=== PATIENT | female | born 1970 | race Caucasian/White ===

== ENCOUNTER 2020-03-10 08:18 | Outpatient (CLI) | payer OTHER, SELFPAY ==
--- NOTE | 2020-03-10 08:21 | MM_ITS ---
WS: [id number] SCREENING DIGITAL MAMMOGRAM WITH CAD HISTORY: SCREENING COMPARISON: None available. Bilateral CC and MLO views submitted. Computer aided detection analyzed. Breast composition: There are scattered areas of fibroglandular density. No suspicious masses, microc alcifications or architectural distortion. MM/[place] [id number] IMPRESSION: BI-RADS: 1-Negative FOLLOW UP: 1 Year Follow-up
== END 2020-03-10 08:19 | disposition home or self-care (01) ==
LOC: RADSHAW 08:19
PROVIDERS: PCP Nurse Practitioner; Visit Provider Nurse Practitioner
DX: Z12.31 Encounter for screening mammogram for malignant neoplasm of breast (principal)
CPT/HCPCS: 77067

== ENCOUNTER 2020-04-18 02:41 | Emergency (ER) | payer OTHER, SELFPAY ==
[2020-04-18 03:12] VITALS: BP 137/79; PULSE 100; RESP 18; TEMP 35.2; O2SAT 97; BMI 36.6
--- NOTE | 2020-04-18 03:28 | CTR_ITS ---
PROCEDURE INFORMATION: Exam: CT Abdomen And Pelvis With Contrast Exam date and time: 04/18/2020 4:01 AM Age: 49 years old Clinical indication: Other: Diarrhea; Abdominal pain; Generalized; Prior surgery; Surgery date: 6+ months; Surgery type: Appy; Additional info: Abd pain TECHNIQUE: Imaging protocol: Computed tomography of the abdomen and pelvis with intravenous contrast. Radiation optimization: All CT scans at this facility use at least one of these dose optimization techniques: automated exposure control; mA and/or kV adjustment per patient size (includes targeted exams where dose is matched to clinical indication); or iterative reconstruction. Contrast material: OMNI 300; Contrast volume: 95 ml; Contrast route: INTRAVENOUS (IV); COMPARISON: CT Abdomen/Pelvis Renal [id number] 03/31/2019 1:24 PM RADIATION DOSE METRICS: Total DLP (mGy-cm): 1218.27 FINDINGS: Lungs: The lung bases are clear. Mediastinal space: Very small hiatal hernia. There may be some mucosal/wall thickening involving the lower esophagus. This is nonspecific, but could represent evidence for esophagitis. Please correlate clinically. Liver: There is fatty infiltration of the liver. Gallbladder and bile ducts: No definite gallbladder abnormality by CT. No biliary tree dilation. Pancreas: Unremarkable. Spleen: Unremarkable. Adrenals: Unremarkable. Kidneys and ureters: No hydronephrosis of either kidney. No visible ureteral calculus. No perinephric fluid. The kidneys enhance homogeneously. Stomach and bowel: Possibility of slightly thickened mucosa/wall in the distal antrum of the stomach. This is a nonspecific appearance, and may well be transient on CT, but could also represent evidence for gastritis or peptic ulcer disease. Please correlate clinically. There are no CT findings to strongly suggest diverticulitis. Appendix: Reportedly, there has been prior appendectomy. Intraperitoneal space: No free air, ascites, or bowel distention. Vasculature: No evidence for abdominal aortic aneurysm. Lymph nodes: No retroperitoneal adenopathy. Bladder: Possibly some mild diffuse urinary bladder wall thickening. While nonspecific, this could indicate evidence for cystitis. Please correlate clinically. Reproductive: The right ovary contains a 20 x 13 mm dominant follicle versus small collapsing cyst. Significance probably unlikely due to small size. No significant cul-de-sac fluid. Possible nabothian cysts versus small fibroids in the lower uterine segment/cervix region, similar to prior exam. Bones/joints: Moderate degenerative disc changes at L5-S1, similar to prior exam. Soft tissues: Very small cyst. umbilical hernia, containing only fat. CT/CT abdomen pelvis w con* [id number] IMPRESSION: 1. No free air or bowel distention. 2. Possible thickened mucosa/wall in the distal stomach, see above discussion. 3. No free air or bowel distention. 4. Possible mild urinary bladder wall thickening, see above. 5. Very small hiatal hernia. Possibly some thickening of the lower esophagus, see above discussion. 6. Other findings discussed above. Radiation Dose CTDIVOL = (mGy): DLP = 1218.27 (mGy-cm)
[2020-04-18 03:38] LABS: Add Urine Microscopic? NO
--- NOTE | 2020-04-18 03:39 | W.ED.ABDPA2 ---
HPI - Abdominal Pain General: Chief Complaint: Abdominal Pain Stated Complaint: upper abd pain Time Seen by Provider: 04/18/20 03:20 History of Present Illness: HPI narrative: 49-year-old female with 1 week of upper abdominal pain. She states it started on the left side, and is now more in the epigastrium. She has not vomited. She has had some diarrhea. Her PCP did some labs on Sunday, but has not called her. She has a history of belly surgeries including appendectomy, 2 laparoscopic surgeries. No one else is been sick with vomiting or diarrhea. She denies fever. MD elicited complaint: abdominal pain Onset (ago): day(s) Pain Consistency: constant Location: Epigastric and LUQ Severity: moderate Quality: cramping and stabbing Radiation: none Migration to: no migration Exacerbating factors: eating Relieving factors: nothing Associated Symptoms: Reports diarrhea, loose stools and nausea; Denies coffee ground emesis, dysuria, fever(s), hematuria, hematemesis, melena and vomiting Review of Systems Const: Denies: fever(s) Eyes: Denies: change in vision ENMT: Denies: swelling of lips/tongue, epistaxis or sinus pain Card: Denies: chest pain, palpitations, irregular heart rhythm or edema Resp: Denies: dyspnea, productive cough, non-productive cough or wheezing GI: Reports: nausea and diarrhea; Denies: vomiting, hematemesis, coffee ground emesis or melena : Denies: dysuria or hematuria Musc: Reports: back pain; Denies: neck pain or joint warmth Skin/Breast: Denies: rash, pruritus or erythema Neuro: Denies: headache(s), dizziness, vertigo, confusion or seizure-like activity Psych: Denies: anxiety, visual hallucinations or auditory hallucinations PFS ED PFSH: Social History (Updated 10/10/19 @ 16:16 by MASOOD Hatch) Smoking and tobacco status: never smoked Alcohol intake: never Adopted: No Caregiver/support person: No Lives independently: No Household members: spouse Marital status: Current occupational status: employed Physical Exam Const: GENERAL APPEARANCE: well developed ORIENTATION/CONSCIOUSNESS: Yes oriented to person, Yes oriented to place and Yes oriented to time HENMT: COMMON NORMALS: normocephalic, external ears normal and Normal external nose present HEAD & SCALP: normocephalic; no scalp tenderness FACE & SINUS: normal facial exam NOSE: Normal external nose present and No nasal discharge present EXTERNAL EAR: Yes external ears normal Eye: COMMON NORMALS: Equal, round and reactive pupils present, EOMs intact bilaterally and conjunctivae normal EYELID: eyelids normal CONJUNCTIVA: Yes conjunctivae normal PUPIL: Yes Equal, round and reactive pupils present Neck/C-Spine: GENERAL: No tracheal deviation Chest: COMMONS NORMALS: normal inspection of the chest CHEST: No tenderness Resp: COMMON NORMALS: clear to auscultation bilaterally EFFORT & INSPECTION: No tachypneic, No respiratory distress, No retractions, No uses accessory muscles and No tracheal deviation AUSCULTATION: clear to auscultation bilaterally, no rhonchi, no wheezes and lung sounds not diminished Cardio: COMMON NORMALS: regular rate and regular rhythm RATE: regular rate RHYTHM: regular rhythm HEART SOUNDS: no murmurs PERIPHERAL PULSES: radial pulses present GI: INSPECTION: No abdominal distension AUSCULTATION: No Hyperactive bowel sounds present and No Hypoactive bowel sounds present PALPATION: Yes Tenderness to palpation present (GI) (Epigastric), Yes Guarding due to palpation present (GI) and No Rigid due to palpation PERCUSSION: no dullness to percussion and no tympanic to percussion : COMMON NORMALS: Yes no CVA tenderness BLADDER/KIDNEY EXAM: Yes no CVA tenderness Back/Pelvis: COMMON NORMALS: no CVA tenderness Neuro: SENSORIUM/ORIENTATION: Yes oriented to person, Yes oriented to place and Yes oriented to time Psych: COMMON NORMALS: mental status grossly normal Skin: COMMON NORMALS: no rashes or lesions noted GENERAL SKIN EXAM: no rashes or lesions noted Course Vital Signs: Vital signs: Vital Signs Temperature 95.3 F L 04/18/20 03:12 Pulse Rate 100 04/18/20 03:12 Respiratory Rate 20 H 04/18/20 04:15 Blood Pressure 137/79 04/18/20 03:12 Pulse Oximetry 97 04/18/20 04:15 MDM - Abdominal Pain MDM Narrative: Medical decision making narrative: 49-year-old female with a week of belly pain. She is tender in her epigastrium. White blood cell count is 11.7. Her potassium is 3.4. Her urinalysis is negative. CT reveals thickening of the distal stomach wall and possibly the distal esophagus. She will be treated for gastritis. Close outpatient follow-up was stressed. Lab Data: Labs: Lab Results 04/18/20 04/18/20 04/18/20 Range/Units 03:30 03:35 03:35 WBC 11.7 H (4.0-10.0) 10^3/ uL RBC 5.45 H (4.1-5.3) 10^6/u L Hgb 15.1 (11.5-15.3) g/dL Hct 45.5 (37.0-47.0) % MCV 83.5 (81-99) fL MCH 27.7 L (28.0-34.0) pg MCHC 33.2 (30.0-36.0) g/dL RDW 13.2 (12.1-15.1) % Plt Count 320 (130-400) 10^3/c mm MPV 11.1 H (7.4-10.4) fL Neut % (Auto) 56.9 % Lymph % (Auto) 35.2 % Henry % (Auto) 5.2 % Eos % (Auto) 1.5 % Baso % (Auto) 0.9 % Neut # (Auto) 6.66 (1.8-7.7) 10^3/u L Lymph # (Auto) 4.1 (0.8-4.8) 10^3/u L Henry # (Auto) 0.6 (0.2-0.9) 10^3/u L Eos # (Auto) 0.2 (0.0-0.8) 10^3/u L Baso # (Auto) 0.1 (0.0-0.1) 10^3/u L Nucleated RBC % (a uto) 0 % Nucleated RBCs # 0.0 /100WBC Sodium 137 (136-145) mmol/L Potassium 3.4 L (3.5-5.1) mmol/L Chloride 98 (98-107) mmol/L Carbon Dioxide 28 (22-29) mmol/L Anion Gap 14.4 (5-19) BUN 13 (6-20) mg/dL Creatinine 0.9 (0.5-0.9) mg/dL GFR Calculation 67.1 L (90-130) mL/min Glucose 106 (65-115) mg/dL Calculated Osmolal ity 281 L (285-295) mOsm/k g Calcium 9.5 (8.5-10.5) mg/dL Total Bilirubin 0.3 (0.15-1.2) mg/dL AST 18 (0-32) U/L ALT 28 (0-33) U/L Alkaline Phosphata se 111 H (35-105) IU/L C-Reactive Protein 11.3 H (0.0-4.9) mg/L Total Protein 7.9 (6.6-8.7) g/dL Albumin 4.6 (3.5-5.2) g/dL Globulin 3.3 (1.3-4.6) g/dL Lipase 54 (13-60) U/L HCG, Qual (Negative) Urine Color Yellow (Yellow) Urine Appearance Clear (CLEAR) Urine pH 5 (5-7) Ur Specific Gravit y 1.020 (1.005-1.030) Urine Protein Neg (Negative) Urine Glucose (UA) Norm (Normal) Urine Ketones Negative (Negative) Urine Blood Neg (Negative) Urine Nitrate Negative (Negative) Urine Bilirubin Neg (NEGATIVE) Urine Urobilinogen Norm (Negative) mg/dL Ur Leukocyte Adilia ase Negative (Negative) 04/18/20 Range/Units 03:35 WBC (4.0-10.0) 10^3/ uL RBC (4.1-5.3) 10^6/u L Hgb (11.5-15.3) g/dL Hct (37.0-47.0) % MCV (81-99) fL MCH (28.0-34.0) pg MCHC (30.0-36.0) g/dL RDW (12.1-15.1) % Plt Count (130-400) 10^3/c mm MPV (7.4-10.4) fL Neut % (Auto) % Lymph % (Auto) % Henry % (Auto) % Eos % (Auto) % Baso % (Auto) % Neut # (Auto) (1.8-7.7) 10^3/u L Lymph # (Auto) (0.8-4.8) 10^3/u L Henry # (Auto) (0.2-0.9) 10^3/u L Eos # (Auto) (0.0-0.8) 10^3/u L Baso # (Auto) (0.0-0.1) 10^3/u L Nucleated RBC % (a uto) % Nucleated RBCs # /100WBC Sodium (136-145) mmol/L Potassium (3.5-5.1) mmol/L Chloride (98-107) mmol/L Carbon Dioxide (22-29) mmol/L Anion Gap (5-19) BUN (6-20) mg/dL Creatinine (0.5-0.9) mg/dL GFR Calculation (90-130) mL/min Glucose (65-115) mg/dL Calculated Osmolal ity (285-295) mOsm/k g Calcium (8.5-10.5) mg/dL Total Bilirubin (0.15-1.2) mg/dL AST (0-32) U/L ALT (0-33) U/L Alkaline Phosphata se (35-105) IU/L C-Reactive Protein (0.0-4.9) mg/L Total Protein (6.6-8.7) g/dL Albumin (3.5-5.2) g/dL Globulin (1.3-4.6) g/dL Lipase (13-60) U/L HCG, Qual Negative (Negative) Urine Color (Yellow) Urine Appearance (CLEAR) Urine pH (5-7) Ur Specific Gravit y (1.005-1.030) Urine Protein (Negative) Urine Glucose (UA) (Normal) Urine Ketones (Negative) Urine Blood (Negative) Urine Nitrate (Negative) Urine Bilirubin (NEGATIVE) Urine Urobilinogen (Negative) mg/dL Ur Leukocyte Adilia ase (Negative) Discharge Plan Discharge Patient Disposition: Home Clinical Impression: Gastritis Qualifiers: Gastritis type: unspecified gastritis Chronicity: acute Gastritis bleeding: without bleeding Qualified Code(s): K29.00 - Acute gastritis without bleeding Condition: Stable Prescriptions: New Prevacid 30 mg capsule,delayed release(DR/EC) 30 mg PO DAILY 28 Days Qty: 30 RF: 0 Carafate 1 gram tablet 1 gm PO TID 28 Days Qty: 84 RF: 0 [place] 5-325 mg tablet 1 tab PO Q8H PRN (Reason: pain) Qty: 7 RF: 0 Discharge Orders: Discharge Order (Routine); Ordered 04/18/20 Ordered By: Ceasar Bush Referrals: Karma Cordova FNP [Primary Care Provider] - 4-7 days Discharge Diet: Advance as tolerated Discharge Activity: Increase activity as tolerated Patient Instructions: Gastritis (ED) Activity Restrictions/Additional Instructions: Return for worsening pain despite treatment, vomiting liquids or medications, blood in the stool or vomitus, fever greater than 100, other concerning symptoms. Coding Level of Care Code ED Director Of Occupational Therapy for Chg Fwd Exam Comprehensive
[2020-04-18 03:44] LABS: Bilirubin Urine Neg (NEGATIVE); Blood Urine Neg (Negative); Glucose Urine UA Norm (Normal); Ketones Urine Negative (Negative); Leukocyte Esterase Urine Negative (Negative); Nitrate Urine Negative (Negative); Protein Urine Neg (Negative); Urine Appearance Clear (CLEAR); Urine Color Yellow (Yellow); Urobilinogen Urine Norm (Negative); pH Urine 5 (5-7)
[2020-04-18 03:58] LABS: Basophils # 0.1 10^3/uL (0.0-0.1); Basophils % 0.9 %; Eosinophils # 0.2 10^3/uL (0.0-0.8); Eosinophils % 1.5 %; Hematocrit 45.5 % (37.0-47.0); Hemoglobin 15.1 g/dL (11.5-15.3); Lymphocytes # 4.1 10^3/uL (0.8-4.8); Lymphocytes % 35.2 %; Mean Corpuscular HGB Conc 33.2 g/dL (30.0-36.0); Mean Corpuscular Hemoglobin 27.7 pg (28.0-34.0); Mean Corpuscular Volume 83.5 fL (81-99); Mean Platelet Volume 11.1 fL (7.4-10.4); Monocytes # 0.6 10^3/uL (0.2-0.9); Monocytes % 5.2 %; Neutrophils # 6.66 10^3/uL (1.8-7.7); Neutrophils % 56.9 %; Nucleated Red Blood Cells % 0 %; Platelet Count 320 10^3/cmm (130-400); Red Blood Count 5.45 10^6/uL (4.1-5.3); Red Cell Distribution Width 13.2 % (12.1-15.1); White Blood Count 11.7 10^3/uL (4.0-10.0)
[2020-04-18] MEDS: sodium chloride 0.9% 1,000 ML 999 ML IV (04:10)
[2020-04-18 04:15] VITALS: RESP 20; O2SAT 97
[2020-04-18] MEDS: morphine 4 mg/mL SDV 1 mL IVP (04:15)
[2020-04-18 04:16] LABS: HCG, Serum Qual Negative (Negative)
[2020-04-18 04:19] LABS: Alanine Aminotransferase 28 U/L (0-33); Albumin Level 4.6 g/dL (3.5-5.2); Alkaline Phosphatase 111 IU/L (35-105); Anion Gap 14.4 (5-19); Aspartate Amino Transferase 18 U/L (0-32); Blood Urea Nitrogen 13 mg/dL (6-20); C Reactive Protein 11.3 mg/L (0.0-4.9); Calcium 9.5 mg/dL (8.5-10.5); Carbon Dioxide 28 mmol/L (22-29); Chloride 98 mmol/L (98-107); Globulin 3.3 g/dL (1.3-4.6); Glomerular Filtration Rate 67.1 mL/min (90-130); Glucose 106 mg/dL (65-115); Lipase 54 U/L (13-60); Osmolality Calculated 281 mOsm/kg (285-295); Potassium 3.4 mmol/L (3.5-5.1); Sodium 137 mmol/L (136-145); Total Bilirubin 0.3 mg/dL (0.15-1.2); Total Protein 7.9 g/dL (6.6-8.7)
[2020-04-18] MEDS: ondansetron 2 mg/ML SDV 2 mL 4 MG IVP (04:21)
[2020-04-18] MEDS: iohexol 300 mg/mL 100 mL Btl IV (04:25)
[2020-04-18] MEDS: lidocaine 2% viscous 15 ML, aluminum-mag hydrox-simethicon 30 ML, sucralfate oral liq 1 GM PO (05:10)
--- NOTE | 2020-04-18 05:13 | PC.NURSE ---
pain 3
[2020-04-18 05:44] VITALS: BP 146/70; PULSE 84; RESP 18; O2SAT 99
--- NOTE | 2020-04-18 05:46 | PC.NURSE ---
i agree with this assessment
[2020-04-18 06:17] LABS: H. Pylori IgG Antibody Negative (Negative)
== END 2020-04-18 05:46 | disposition home or self-care (01) ==
PROVIDERS: Emergency Provider Emergency Medicine; PCP Nurse Practitioner
DX: K29.00 Acute gastritis without bleeding (principal)
CPT/HCPCS: 12345; 74177; 80053; 81003; 83690; 84703; 85025; 86140; 86677; 96361; 96374; 96375; 99283; J2270; J2405; J7030; Q9967

== ENCOUNTER 2020-05-16 20:26 | Emergency (ER) | payer OTHER, SELFPAY ==
[2020-05-16 20:43] VITALS: BP 156/82; PULSE 102; RESP 18; TEMP 37.2; O2SAT 98; BMI 36.6
--- NOTE | 2020-05-16 21:05 | ED_ITS ---
HPI - URI/Sore Throat General: Chief Complaint: Upper Respiratory Infection Stated Complaint: COVID SYMPTOMS Time Seen by Provider: 05/16/20 20:53 History of Present Illness: HPI Narrative: Patient comes in with the upper respiratory congestion cough tested for COVID negative on Sunday denies fever chills muscle aches are loss of taste or smell. Said just coughing a lot MD elicited complaint: cough and nasal congestion Onset (ago): day(s) Consistency: constant and progressively worsening Severity: mild Description of mucous: yellow Able to tolerate fluids by mouth: Yes Exacerbating factors: nothing Relieving factors: nothing Context: sick contacts (Possible COVID exposure) Associated symptoms: Reports no associated symptoms and nasal congestion; Deny abdominal pain, chills, chest pain, fever(s), headache(s), nausea or vomiting Review of Systems Const: Denies: fever(s), chills or body aches Eyes: Denies: change in vision or blurry vision ENMT: Reports: nasal discharge and nasal congestion; Denies: throat pain Card: Denies: chest pain or dyspnea on exertion Resp: Reports: non-productive cough; Denies: dyspnea or productive cough GI: Denies: abdominal pain, nausea or vomiting Musc: Denies: extremity pain Skin/Breast: Denies: rash Neuro: Denies: headache(s) Psych: Denies: anxiety or depression Walter/Lymph: Denies: easy bruising PFSH ED PFSH: Social History (Updated 10/10/19 @ 16:16 by MASOOD Hatch) Smoking and tobacco status: never smoked Alcohol intake: never Adopted: No Caregiver/support person: No Lives independently: No Household members: spouse Marital status: Current occupational status: employed Physical Exam Const: COMMON NORMALS: no acute distress, average body habitus and patient oriented x3 HENMT: COMMON NORMALS: normocephalic HEAD & SCALP: normal to inspection and normocephalic FACE & SINUS: normal facial exam Eye: COMMON NORMALS: conjunctivae normal GENERAL EYE: appearance normal, both eyes and all related structures CONJUNCTIVA: Yes conjunctivae normal Neck/C-Spine: COMMON NORMALS: no JVD Chest: COMMONS NORMALS: normal inspection of the chest Resp: COMMON NORMALS: normal respiratory effort and clear to auscultation bilaterally AUSCULTATION: clear to auscultation bilaterally Cardio: COMMON NORMALS: no JVD, regular rate and regular rhythm RATE: regular rate RHYTHM: regular rhythm GI: COMMON NORMALS: Normal to inspection, nondistended, normoactive bowel sounds present Extremity: COMMON NORMALS: normal to inspection and full ROM Neuro: COMMON NORMALS: patient oriented x3 Course Vital Signs: Vital signs: Vital Signs Temperature 98.9 F 05/16/20 20:43 Pulse Rate 102 H 05/16/20 20:43 Respiratory Rate 18 05/16/20 20:43 Blood Pressure 156/82 05/16/20 20:43 Pulse Oximetry 98 05/16/20 20:43 Discharge Plan Discharge Patient Disposition: Home Clinical Impression: Bronchitis Condition: Stable Prescriptions: New Medrol (Samuel) 4 mg tablets,dose pack See Rx Instructions .ROUTE .COMPLEX Qty: 21 RF: 0 Zithromax Z-Samuel 250 mg tablet See Rx Instructions .ROUTE .COMPLEX Qty: 6 RF: 0 No Action [place] 5-325 mg tablet 1 tab PO Q8H PRN (Reason: pain) Qty: 7 RF: 0 Discharge Orders: Discharge Order (Routine); Ordered 05/16/20 Ordered By: Jones Levine Referrals: Karma Cordova FNP [Primary Care Provider] - Discharge Diet: Usual diet Discharge Activity: Increase activity as tolerated Patient Instructions: Acute Bronchitis (ED) Activity Restrictions/Additional Instructions: Follow-up with medical provider as directed. Take medications as prescribed. Return to the ER or your medical provider if condition worsens. Please read and understand discharge instructions. If any questions ask please. Use honey every 1-2 hours to help with cough. Coding Level of Care Code ED Director Of Operations For Therapy for Stepan Ervin
[2020-05-16] MEDS: predniSONE 20 mg Tablet PO (21:17)
[2020-05-16] MEDS: azithromycin 250 mg Tablet 500 MG PO (21:17)
[2020-05-16 21:23] VITALS: PULSE 97; RESP 20; O2SAT 97
--- NOTE | 2020-05-16 21:27 | PC.NURSE ---
prior to dc informed provider adela informed of hr of 97bpm and rr of 20/min
== END 2020-05-16 21:29 | disposition home or self-care (01) ==
PROVIDERS: Emergency Provider Nurse Practitioner Family; PCP Nurse Practitioner
DX: J40 Bronchitis, not specified as acute or chronic (principal)
CPT/HCPCS: 12345; 99281; 99283; J7512; Q0144

== ENCOUNTER 2020-09-22 13:06 | Outpatient (CLI) | payer OTHER, SELFPAY ==
[2020-09-22 15:23] LABS: Basophils # 0.1 10^3/uL (0.0-0.1); Basophils % 0.7 %; Eosinophils # 0.1 10^3/uL (0.0-0.8); Eosinophils % 0.8 %; Hemoglobin 15.4 g/dL (11.5-15.3); Lymphocytes # 2.5 10^3/uL (0.8-4.8); Lymphocytes % 19.9 %; Mean Corpuscular HGB Conc 33.5 g/dL (30.0-36.0); Mean Corpuscular Hemoglobin 27.5 pg (28.0-34.0); Mean Corpuscular Volume 82.3 fL (81-99); Mean Platelet Volume 10.9 fL (7.4-10.4); Monocytes # 0.6 10^3/uL (0.2-0.9); Monocytes % 4.4 %; Neutrophils # 9.32 10^3/uL (1.8-7.7); Neutrophils % 73.9 %; Nucleated Red Blood Cells % 0 %; Platelet Count 305 10^3/cmm (130-400); Red Blood Count 5.59 10^6/uL (4.1-5.3); Red Cell Distribution Width 13.2 % (12.1-15.1); White Blood Count 12.6 10^3/uL (4.0-10.0)
[2020-09-22 15:24] LABS: LAB Peripheral Smear Sent for Review
[2020-09-22 16:30] LABS: Lactate Dehydrogenase 176 U/L (135-214); Thyroid Stimulating Hormone 1.08 uIU/mL (0.27-4.20); Vitamin B12 370 pg/mL (232-1245)
--- NOTE | 2020-09-22 19:26 | ONC CON_ITS ---
Dr. Alvarez New Patient Note Patient: Elizabeth Correia Unit #: [id number]: [id number] Dicatated By: Jair Alvarez M.D.Date of Visit: Sep 22, 2020 Onc MED New Patient/Consult Referring Physician: Karma Cordova A.P.N. Chief Complaint: Elevated hemoglobin/hematocrit and mild leukocytosis. History of Present Illness: This is a 50-year-old woman with mildly elevated hemoglobin/hematocrit levels and a mild leukocytosis. In March 2020 she was seen at the [place] [facility] for a routine follow-up visit. Her laboratory studies from 03/30/2020 showed mildly elevated hemoglobin at 15.6 g with hematocrit 47.7%. The red cell indices were in the low normal range. Her white blood cell count also was mildly elevated at 11,900 with the differential showing 70% neutrophils, 22% lymphocytes, 4% monocytes, 1% eosinophils, and 1% basophils. The platelet count was normal at 341,000. I did not receive any of her records from earlier visits, but the patient indicates that her blood counts had been similarly elevated the preceding year. At that time she was recommended to see a tax manager public. For some reason there was delay in getting the appointment scheduled. In the meantime, she had a repeat CBC on 08/18/2020 and that study showed hemoglobin in normal range at 14.0 g with hematocrit 42.8%. The red cell indices were again in the low normal range. The white blood cell count remained slightly elevated at 11,100 and the platelet count was 309,000. Her comprehensive metabolic profile showed normal renal function with BUN 9 and creatinine 0.87 mg/dL. The bilirubin and liver enzymes were normal. She does complain that she feels tired a lot, but that has been going on a long time. She has normal activity. Her ECOG score is 0. She has good appetite. Her weight has been stable. She has not had fever. She has occasional hot flashes/sweating. She has occasional sinus drainage, attributable to allergies, and she does have some cough. She uses an inhaler as needed for asthma. She says her breathing lately has been okay. She does not complain of chest pain. She has no GI or complaints. She has arthritis pain in her hands and in her hips and knees. This is suspected to be psoriatic arthritis, and she is scheduled to see a textile conversion manager. She also has some back pain. She has occasional numbness/tingling. She has no other focal neurologic symptoms. Past Medical History: Her medical history includes allergic rhinitis, anxiety, asthma, attention deficit hyperactivity disorder, endometriosis, gastroesophageal reflux disease, hypertension, and psoriatic arthritis. Past Surgical History: Her surgical/procedural history includes lithotripsy in 2018, tubal ligation with endometrial ablation and ovarian cyst excision in 2007, laparoscopy with excision of ovarian cyst in 1991, and appendectomy and ovarian cyst excision in 1987. Medications: amLODIPine Besylate 1 (10 mg) Tablet Oral daily, Multiple Vitamin 1 Tablet, chewable Oral daily, Omeprazole 1 Capsule (of 40 mg) Capsule Delayed Release Oral daily, Temazepam 1 Tablet (of 15 mg) Capsule Oral at bedtime Allergies: No Known Allergies. Social History: Ms. Correia is . She is employed as an educator. She is a non-smoker. She does not drink alcohol. Family History: She does not know anything about her father. Mother is living age 71. She had a stroke last year. One brother is in good health. Review Of Symptoms: Constitutional - She has been feeling tired a lot, that has been going on for a long time. She has normal activity. Her appetite is good and her weight has been stable. She has not had fever. She occasionally has hot flashes/sweating. ECOG score is 0, Eyes - No change in vision, ENMT - No hearing loss or tinnitus. She occasionally has sinus drainage, attributable to allergies. No mouth sores. No sore throat or difficulty swallowing, Hematologic/Lymphatic - No abnormal bruising or bleeding, Respiratory - She has asthma and she sometimes has shortness of breath, though none lately. She uses an inhaler only as needed. She has some cough. No pleuritic pain or hemoptysis, Cardiovascular - No angina pain. No palpitations, Gastrointestinal - No nausea or vomiting. Her acid reflux is adequately managed with medication. No diarrhea or constipation. No blood in the stool or black stools, Genitourinary (F) - No dysuria or hematuria. No urinary frequency. No urgency or incontinence, Musculoskeletal - She has joint pain, mainly in the fingers, hips, and knees, suspected to be psoriatic arthritis. She also has back pain, Integumentary - She has psoriasis, mainly affecting the scalp area, Neurologic - She has had aches. She has dizziness when her blood pressure is elevated. She occasionally has numbness/tingling, Psychiatric - She has anxiety. No depression. She takes temazepam for insomnia. Vital Signs: Height is 62 inches and weight 201 pounds. Blood pressure 166/94, pulse 106, temp 98.2 degrees, oxygen saturation 96%. Physical Examination: Constitutional - She appears to be in good general health, Eyes - Sclerae nonicteric. Conjunctivae clear, ENMT - No lesions noted in the oral cavity, Neck - No mass or thyromegaly, Hematologic/Lymphatic - No cervical, clavicular, or axillary adenopathy, Respiratory - Lungs sound clear with good air movement bilaterally, Cardiovascular - Heart rhythm is regular. There is no murmur, gallop, or rub noted, Abdomen - Soft and non-tender. Liver and spleen are not enlarged. There is no abdominal mass or ascites noted and there is no inguinal adenopathy, Back/Spine - No spine or CVA tenderness noted, Extremities - No edema, Integumentary - No suspicious skin lesions noted, Neurologic - No focal neurologic deficits noted. Historic Problem List: 1. Hypertension. 2. Mild asthma. 3. Allergic rhinitis. 4. GERD. 5. Chronic anxiety. 6. Suspected psoriatic arthritis. Problems Addressed with this Encounter and Plan: 1. Mildly elevated hemoglobin/hematocrit levels and mild leukocytosis. The laboratory findings were reviewed with the patient and we discussed the clinic complications. The cause is uncertain, but I would suspect that the elevated hemoglobin/hematocrit levels are most likely due to decreased plasma volume, i.e. stress erythrocytosis , as she does not have clinical evidence for underlying hypoxia and polycythemia rubra vera would be unlikely in this age group. However, polycythemia rubra vera does need to be excluded, particularly with the associated leukocytosis. Similarly, chronic myeloid leukemia also needs to be excluded. As such, she will have additional laboratory studies today to include CBC, LDH level, erythropoietin level, and molecular studies to include a JAK2 gene mutation study and a FISH study for BCR/abl. In addition, I will be reviewing the blood smear and I also will be checking serum iron studies, as with her red cell indices in the lower normal range she could have coexisting iron deficiency. 2. She has significant fatigue. In addition to checking serum iron studies, I also will check a TSH level. Signed By: Jair Alvarez M.D. <<Signature on File>>
[2020-09-23 10:12] LABS: Iron 72 ug/dL (37-145); Percent Saturation 24.2 % (20-50); Total Iron Binding Capacity 297 mcg/dl; Unsaturated Iron Binding 225 ug/dL (112-347)
[2020-10-05 16:09] LABS: CALR Exon 9 Mutation NOT DETECTED (NOT DETECTED); CSF3R Exon 14/17 Mutation NOT DETECTED (NOT DETECTED); JAK2 Exon 12 Mutation NOT DETECTED (NOT DETECTED); JAK2 V617 Block Specimen ID NG; JAK2 V617 Clinical Indication NG; JAK2 V617 Mutation NOT DETECTED (NOT DETECTED); JAK2 V617 Specimen Source NG; MPL Exon 12 Mutation NOT DETECTED (NOT DETECTED)
== END 2020-09-22 13:07 | disposition home or self-care (01) ==
LOC: ONCMED 13:08
PROVIDERS: PCP Nurse Practitioner; Visit Provider Internal Medicine Medical Oncology
DX: D75.1 Secondary polycythemia (principal); D50.9 Iron deficiency anemia, unspecified; D51.9 Vitamin B12 deficiency anemia, unspecified; D72.829 Elevated white blood cell count, unspecified; I10 Essential (primary) hypertension; J45.909 Unspecified asthma, uncomplicated; J30.9 Allergic rhinitis, unspecified; K21.9 Gastro-esophageal reflux disease without esophagitis; F41.9 Anxiety disorder, unspecified; L40.50 Arthropathic psoriasis, unspecified
CPT/HCPCS: 36415; 82607; 83540; 83550; 83615; 84443; 85025; 99204

== ENCOUNTER 2020-09-27 11:34 | Outpatient (CLI) | payer OTHER, SELFPAY ==
[2020-09-28 15:53] LABS: Erythropoietin 10.1 mIU/mL (2.6-18.5)
== END 2020-09-27 11:35 | disposition home or self-care (01) ==
LOC: ONCMED 11:35
PROVIDERS: Internal Medicine Hematology & Oncology; PCP Nurse Practitioner; Visit Provider Internal Medicine Medical Oncology
DX: D75.1 Secondary polycythemia (principal); D72.829 Elevated white blood cell count, unspecified
CPT/HCPCS: 36415; 82668; 88374

== ENCOUNTER → 2020-10-06 09:32 | Outpatient (BNVA) | payer OTHER, SELFPAY | PROVIDERS: PCP Nurse Practitioner; Visit Provider Internal Medicine Rheumatology | DX: L40.50 Arthropathic psoriasis, unspecified (principal); Z79.899 Other long term (current) drug therapy; Z11.59 Encounter for screening for other viral diseases; Z11.1 Encounter for screening for respiratory tuberculosis; M54.89 Other dorsalgia; L40.9 Psoriasis, unspecified | CPT/HCPCS: 99204 ==

== ENCOUNTER 2020-10-06 11:22 | Outpatient (CLI) | payer OTHER, SELFPAY ==
--- NOTE | 2020-10-06 11:36 | XR_ITS ---
WS: [id number] Exam: XR hand RT min 3V* [id number] Date/Time of Exam: 10/06/2020 11:36 AM Reason For Exam: Z79.899 - Other terminal clerk (current) drug therapy No acute fracture or dislocation. Degenerative narrowing of the IP and MP joints. No sign of the bony erosion. Normal soft tissues. XR/XR hand RT min 3V* [id number] IMPRESSION: 1. Degenerative narrowing of the IP and MP joints. No other significant finding .
--- NOTE | 2020-10-06 11:36 | XR_ITS ---
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 Degenerative narrowing of the IP joints and first MP joint. Plantar heel spur noted. Normal soft tissues. Mild degenerative changes in the midfoot joints. XR/XR foot LT min 3V* [id number] IMPRESSION: 1. No fracture or dislocation. 2. Degenerative changes as detailed above.
--- NOTE | 2020-10-06 11:36 | XR_ITS ---
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 Findings: The lungs are clear and fully expanded. Costophrenic angles are sharp. No infiltrates. Bronchovascula r relief appears normal. Cardiac silhouette is unremarkable. Bony elements are intact. XR/XR chest 2V* [id number] IMPRESSION: Unremarkable chest radiograph.
--- NOTE | 2020-10-06 11:36 | XR_ITS ---
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 Degenerative narrowing of the IP and first MP joints. Small plantar heel spur. Normal soft tissues. XR/XR foot RT min 3V* [id number] IMPRESSION: 1. Mild degenerative changes of the IP joints and first MP joint. 2. No bony injury identified.
--- NOTE | 2020-10-06 11:36 | XR_ITS ---
WS: [id number] Exam: XR pelvis 1-2V* [id number] Date/Time of Exam: 10/06/2020 11:36 AM Reason For Exam: Z79.899 - Other longterm (current) drug therapy No pelvic fracture or bone destruction. Minimal degenerative changes of the hips and SI joints. Unrem arkable soft tissues. XR/XR pelvis 1-2V* [id number] IMPRESSION: 1. Unremarkable pelvis. 2. Minimal degenerative changes of the SI joints and hips.
--- NOTE | 2020-10-06 11:36 | XR_ITS ---
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 Degenerative narrowing of the IP joints. Mild degenerative narrowin g of the MP joints. Normal soft tissues. XR/XR hand LT min 3V* [id number] IMPRESSION: 1. Degenerative change of the IP and MP joints. 2. No sign of bony erosion or acute bony injury.
[2020-10-06 12:46] LABS: Basophils # 0.1 10^3/uL (0.0-0.1); Eosinophils # 0.2 10^3/uL (0.0-0.8); Hematocrit 45.9 % (37.0-47.0); Lymphocytes # 2.3 10^3/uL (0.8-4.8); Mean Corpuscular HGB Conc 32.7 g/dL (30.0-36.0); Mean Corpuscular Hemoglobin 27.2 pg (28.0-34.0); Mean Corpuscular Volume 83.2 fL (81-99); Mean Platelet Volume 10.9 fL (7.4-10.4); Monocytes # 0.3 10^3/uL (0.2-0.9); Monocytes % 3.9 %; Neutrophils # 5.23 10^3/uL (1.8-7.7); Nucleated Red Blood Cells % 0 %; Platelet Count 303 10^3/cmm (130-400); Red Blood Count 5.52 10^6/uL (4.1-5.3)
[2020-10-06 13:33] LABS: 25 Hydroxy Vitamin D 15 ng/mL (30-100); C Reactive Protein 3.3 mg/L (0.0-4.9)
[2020-10-06 13:34] LABS: Hepatitis B Core AB, Total Non-Reactive (Nonreactive); Hepatitis B Surface Antigen Non-Reactive (Nonreactive); Hepatitis C Virus Antibody Non-Reactive (Nonreactive)
[2020-10-06 13:59] LABS: Erythrocyte Sedimentation Rate 7 mm/hr (0-15)
[2020-10-07 12:59] LABS: Cyclic Citrullinated Peptide <16 UNITS
[2020-10-08 13:29] LABS: Quantiferon Mitogen >10.00 IU/mL; Quantiferon Nil 0.02 IU/mL; Quantiferon Plus TB1 0.16 IU/mL; Quantiferon Plus TB2 0.04 IU/mL; Quantiferon TB Gold NEGATIVE (NEGATIVE)
[2020-10-10 16:49] LABS: HLA-B27 NEGATIVE (NEGATIVE)
== END 2020-10-06 11:23 | disposition home or self-care (01) ==
PROVIDERS: PCP Nurse Practitioner; Visit Provider Internal Medicine Rheumatology
DX: Z79.899 Other long term (current) drug therapy (principal); L40.50 Arthropathic psoriasis, unspecified; L40.9 Psoriasis, unspecified
CPT/HCPCS: 36415; 71046; 72170; 73130; 73630; 82306; 85025; 85651; 86140; 86480; 86704; 86803; 86812; 87340

== ENCOUNTER → 2020-11-15 14:52 | Outpatient (BNVA) | payer OTHER, SELFPAY | PROVIDERS: PCP Nurse Practitioner; Visit Provider Internal Medicine Rheumatology | DX: L40.50 Arthropathic psoriasis, unspecified (principal); M54.89 Other dorsalgia; Z79.899 Other long term (current) drug therapy | CPT/HCPCS: 99214 ==

== ENCOUNTER → 2021-03-02 10:47 | Outpatient (BNVA) | payer OTHER, SELFPAY | PROVIDERS: PCP Nurse Practitioner; Visit Provider Internal Medicine Rheumatology | DX: L40.50 Arthropathic psoriasis, unspecified (principal); Z79.899 Other long term (current) drug therapy; M54.89 Other dorsalgia | CPT/HCPCS: 99214 ==

== ENCOUNTER 2021-03-02 12:33 | Outpatient (CLI) | payer OTHER, SELFPAY ==
[2021-03-02 12:52] LABS: Basophils # 0.1 10^3/uL (0.0-0.1); Basophils % 1.3 %; Eosinophils # 0.1 10^3/uL (0.0-0.8); Eosinophils % 1.3 %; Hematocrit 44.6 % (37.0-47.0); Hemoglobin 14.9 g/dL (11.5-15.3); Lymphocytes # 2.7 10^3/uL (0.8-4.8); Lymphocytes % 30.5 %; Mean Corpuscular HGB Conc 33.4 g/dL (30.0-36.0); Mean Corpuscular Hemoglobin 28.4 pg (28.0-34.0); Mean Corpuscular Volume 85.1 fL (81-99); Mean Platelet Volume 11.3 fL (7.4-10.4); Monocytes # 0.6 10^3/uL (0.2-0.9); Monocytes % 6.7 %; Neutrophils # 5.37 10^3/uL (1.8-7.7); Nucleated Red Blood Cells % 0 %; Platelet Count 274 10^3/cmm (130-400); Red Blood Count 5.24 10^6/uL (4.1-5.3); Red Cell Distribution Width 13.5 % (12.1-15.1)
[2021-03-02 13:22] LABS: Alanine Aminotransferase 24 U/L (0-33); Albumin Level 4.4 g/dL (3.5-5.2); Alkaline Phosphatase 115 IU/L (35-105); Aspartate Amino Transferase 19 U/L (0-32); Globulin 2.8 g/dL (1.3-4.6); Glomerular Filtration Rate 89.3 mL/min (90-130); Total Bilirubin 0.4 mg/dL (0.15-1.2); Total Protein 7.2 g/dL (6.6-8.7)
== END 2021-03-02 12:34 | disposition home or self-care (01) ==
PROVIDERS: PCP Nurse Practitioner; Visit Provider Internal Medicine Rheumatology
DX: L40.50 Arthropathic psoriasis, unspecified (principal); Z79.899 Other long term (current) drug therapy
CPT/HCPCS: 36415; 80076; 82565; 85025; 86140

== ENCOUNTER 2021-03-26 22:00 | Emergency (ER) | payer OTHER, SELFPAY ==
[2021-03-26 22:26] VITALS: BP 134/86; PULSE 114; RESP 20; TEMP 38.4; O2SAT 96; BMI 34.7
[2021-03-26 22:30] VITALS: O2SAT 96
--- NOTE | 2021-03-26 23:32 | ED_ITS ---
HPI - COVID General: Chief Complaint: COVID symptoms Stated Complaint: SOB, POSTIVE COVID TEST Time Seen by Provider: 03/26/21 22:29 Triage information: Has fever, cough or shortness of breath . Exposure to COVID + person last 14 days History of Present Illness: HPI Narrative: 50-year-old female with a history of psoriasis and psoriatic arthritis on immune modulating medication. She presents with symptoms of vomiting and diarrhea as well as cough, headache, body aches, and fevers on and off for the past week. Her symptoms started last Sunday. She tested positive on Sunday for COVID-19. She has been vaccinated, receiving her vaccinations in November and December. MD complaint: known COVID positive Prior covid testing: yes, results known COVID 19 common symptoms: positive fever(s), chills, cough, non-productive cough, body aches, headache(s), nasal congestion, nausea, vomiting and diarrhea; negative productive cough or dyspnea COVID 19 other sytmptoms: negative chest pressure, chest pain or requiring oxygen Onset (ago): day(s) Severity: moderate Pertinent comorbid conditions: hypertension and immunocompromised state Treatment prior to arrival: acetaminophen COVID Results: No Data to Display Review of Systems Const: Reports: fever(s), chills and body aches ENMT: Reports: nasal congestion Card: Denies: chest pain Resp: Reports: non-productive cough; Denies: dyspnea or productive cough GI: Reports: nausea, vomiting and diarrhea : Denies: difficulty voiding Neuro: Reports: headache(s) [facility] ED PFSH: Medical History (Updated 03/27/21 @ 02:06 by Ceasar Bush DO) Calculus, ureter Hematuria High risk medication use Immunization counseling Inflammatory back pain Inflammatory back pain Psoriatic arthritis Retained ureteral stent Surgical History History of appendectomy History of endometrial ablation History of tubal ligation S/P ureteral stent placement Family History Other Diabetes Hyperlipidemia Hypertension Denies family history of Rheumatoid arthritis Lupus Chronic kidney disease (CKD) Lung disease Cancer Stroke Social History Smoking and tobacco status: never smoked Alcohol intake: never Adopted: No Caregiver/support person: No Lives independently: No Household members: spouse Marital status: Current occupational status: employed Physical Exam Const: GENERAL APPEARANCE: cooperative, well developed and ill appearing ORIENTATION/CONSCIOUSNESS: Yes oriented to person, Yes oriented to place and Yes oriented to time HENMT: COMMON NORMALS: normocephalic, external ears normal and Normal external nose present HEAD & SCALP: normocephalic FACE & SINUS: normal facial exam NOSE: Normal external nose present EXTERNAL EAR: Yes external ears normal TEETH & GINGIVA: no abnormal tooth and associated gingiva Eye: COMMON NORMALS: Equal, round and reactive pupils present, EOMs intact bi laterally and conjunctivae normal EYELID: eyelids normal CONJUNCTIVA: Yes conjunctivae normal PUPIL: Yes Equal, round and reactive pupils present Neck/C-Spine: COMMON NORMALS: full ROM GENERAL: No tracheal deviation CERVICAL SPINE: Yes normal cervical lordosis Chest: COMMONS NORMALS: normal inspection of the chest CHEST: No tenderness Resp: COMMON NORMALS: clear to auscultation bilaterally EFFORT & INSPECTION: No tachypneic, No respiratory distress, No retractions, No uses accessory muscles and No tracheal deviation AUSCULTATION: clear to auscultation bilaterally, no rhonchi, no wheezes and lung sounds not diminished Cardio: COMMON NORMALS: regular rate and regular rhythm RATE: regular rate RHYTHM: regular rhythm HEART SOUNDS: no murmurs PERIPHERAL PULSES: radial pulses present GI: INSPECTION: No abdominal distension AUSCULTATION: No Hyperactive bowel sounds present and No Hypoactive bowel sounds present PALPATION: No Guarding due to palpation present (GI) and No Rigid due to palpation PERCUSSION: no dullness to percussion and no tympanic to percussion Neuro: SENSORIUM/ORIENTATION: Yes oriented to person, Yes oriented to place and Yes oriented to time Psych: COMMON NORMALS: mental status grossly normal Skin: COMMON NORMALS: no rashes or lesions noted GENERAL SKIN EXAM: no rashes or lesions noted Course Vital Signs: Vital signs: Vital Signs Temperature 101.2 F H 03/26/21 22:26 Pulse Rate 89 03/27/21 00:51 Respiratory Rate 13 03/27/21 00:51 Blood Pressure 122/67 03/27/21 00:51 Pulse Oximetry 94 03/27/21 00:51 MDM - COVID MDM Narrative: Medical decision making narrative: By criteria, patient is a candidate for monoclonal antibody infusion. This will be set up for her tonight. She received symptomatic treatment with IV fluid, antiemetics, pain medication. CRP mildly elevated. Other laboratory is essentially benign. 19 pattern. This patient was infused with monoclonal antibody for COVID-19 without complication. Symptomatic treatment otherwise. She will be allowed home. She is not requiring oxygen. Lab Data: Labs: Lab Results 03/26/21 03/26/21 Range/Units 00:03 00:03 WBC 5.3 (4.0-10.0) 10^3/ uL RBC 5.38 H (4.1-5.3) 10^6/u L Hgb 15.2 (11.5-15.3) g/dL Hct 45.4 (37.0-47.0) % MCV 84.4 (81-99) fL MCH 28.3 (28.0-34.0) pg MCHC 33.5 (30.0-36.0) g/dL RDW 12.4 (12.1-15.1) % Plt Count 202 (130-400) 10^3/c mm MPV 11.4 H (7.4-10.4) fL Neut % (Auto) 63.2 % Lymph % (Auto) 24.2 % [place] % (Auto) 10.6 % Eos % (Auto) 1.1 % Baso % (Auto) 0.9 % Neut # (Auto) 3.34 (1.8-7.7) 10^3/u L Lymph # (Auto) 1.3 (0.8-4.8) 10^3/u L [place] # (Auto) 0.6 (0.2-0.9) 10^3/u L Eos # (Auto) 0.1 (0.0-0.8) 10^3/u L Baso # (Auto) 0.1 (0.0-0.1) 10^3/u L Nucleated RBC % (a uto) 0 % Nucleated RBCs # 0.0 /100WBC Sodium 137 (136-145) mmol/L Potassium 3.3 L (3.5-5.1) mmol/L Chloride 100 (98-107) mmol/L Carbon Dioxide 26 (22-29) mmol/L Anion Gap 14.3 (5-19) BUN 10 (6-20) mg/dL Creatinine 0.7 (0.5-0.9) mg/dL GFR Calculation 89.3 L (90-130) mL/min Glucose 101 (65-115) mg/dL Calculated Osmolal ity 283 L (285-295) mOsm/k g Calcium 8.7 (8.5-10.5) mg/dL Total Bilirubin 0.6 (0.15-1.2) mg/dL AST 32 (0-32) U/L ALT 38 H (0-33) U/L Alkaline Phosphata se 114 H (35-105) IU/L C-Reactive Protein 51.0 H (0.0-4.9) mg/L Total Protein 6.8 (6.6-8.7) g/dL Albumin 4.1 (3.5-5.2) g/dL Globulin 2.7 (1.3-4.6) g/dL Procalcitonin 0.09 (0-0.5) ng/mL COVID Results: No Data to Display Discharge Plan Discharge Patient Disposition: Home Clinical Impression: COVID-19 Condition: Stable Prescriptions: New hydrocodone-acetaminophen 5-325 mg tablet 1 tab PO Q8H PRN (Reason: pain) Qty: 7 RF: 0 Zofran 4 mg tablet 4 mg PO Q6H PRN (Reason: nausea and vomiting) Qty: 10 RF: 0 No Action amlodipine 10 mg tablet 10 mg PO DAILY RF: 0 temazepam 15 mg capsule 15 mg PO .HS RF: 0 Humira Pen 40 mg/0.8 mL pen injector kit 40 mg SUBCUT Q14D Qty: 2 RF: 3 diclofenac sodium 1 % gel 4 g topical QID Qty: 200 RF: 2 pantoprazole 40 mg tablet,delayed release (DR/EC) See Rx Instructions PO BID Qty: 60 RF: 3 prednisone 10 mg tablet See Rx Instructions PO .COMPLEX PRN (Reason: joint pain) Qty: 60 RF: 0 leflunomide 20 mg tablet 20 mg PO DAILY Qty: 90 RF: 0 Discharge Orders: Discharge ED (Routine); Ordered 03/27/21 Ordered By: Ceasar Bush Referrals: Karma Cordova, FLEET MAINTENANCE MANAGER [Primary Care Provider] - 1-3 days Discharge Diet: Advance as tolerated and Clear Liquid Discharge Activity: Limit activity as instructed Patient Instructions: Gastroenteritis (ED), Opioid Safety Activity Restrictions/Additional Instructions: Return for vomiting liquids or medications despite treatment, worsening pain despite treatment, inability to control temperature, shortness of breath, chest discomfort, any other concerning symptoms. Coding Level of Care Code ED Evs Attendant for Stepan Fwd Exam Comprehensive
[2021-03-27] VITALS: BP 133/92; PULSE 97; RESP 19; O2SAT 93
[2021-03-27 00:01] VITALS: RESP 19; O2SAT 92
[2021-03-27] MEDS: ketorolac 30 mg/mL INJ 15 MG IVP (00:01)
[2021-03-27] MEDS: ondansetron 2 mg/ML SDV 2 mL 4 MG IV (00:01)
[2021-03-27] MEDS: morphine 4 mg/mL SDV 1 mL IVP (00:01)
[2021-03-27 00:11] LABS: Basophils # 0.1 10^3/uL (0.0-0.1); Basophils % 0.9 %; Eosinophils # 0.1 10^3/uL (0.0-0.8); Eosinophils % 1.1 %; Hematocrit 45.4 % (37.0-47.0); Hemoglobin 15.2 g/dL (11.5-15.3); Lymphocytes # 1.3 10^3/uL (0.8-4.8); Lymphocytes % 24.2 %; Mean Corpuscular HGB Conc 33.5 g/dL (30.0-36.0); Mean Corpuscular Hemoglobin 28.3 pg (28.0-34.0); Mean Corpuscular Volume 84.4 fL (81-99); Mean Platelet Volume 11.4 fL (7.4-10.4); Monocytes # 0.6 10^3/uL (0.2-0.9); Monocytes % 10.6 %; Neutrophils # 3.34 10^3/uL (1.8-7.7); Neutrophils % 63.2 %; Nucleated Red Blood Cells % 0 %; Platelet Count 202 10^3/cmm (130-400); Red Blood Count 5.38 10^6/uL (4.1-5.3); Red Cell Distribution Width 12.4 % (12.1-15.1); White Blood Count 5.3 10^3/uL (4.0-10.0)
[2021-03-27 00:30] VITALS: BP 122/67; PULSE 101; RESP 16; O2SAT 94
[2021-03-27 00:31] LABS: Alanine Aminotransferase 38 U/L (0-33); Albumin Level 4.1 g/dL (3.5-5.2); Alkaline Phosphatase 114 IU/L (35-105); Anion Gap 14.3 (5-19); Aspartate Amino Transferase 32 U/L (0-32); Blood Urea Nitrogen 10 mg/dL (6-20); Calcium 8.7 mg/dL (8.5-10.5); Carbon Dioxide 26 mmol/L (22-29); Chloride 100 mmol/L (98-107); Globulin 2.7 g/dL (1.3-4.6); Glomerular Filtration Rate 89.3 mL/min (90-130); Glucose 101 mg/dL (65-115); Osmolality Calculated 283 mOsm/kg (285-295); Potassium 3.3 mmol/L (3.5-5.1); Sodium 137 mmol/L (136-145); Total Bilirubin 0.6 mg/dL (0.15-1.2); Total Protein 6.8 g/dL (6.6-8.7)
[2021-03-27 00:36] LABS: Procalcitonin 0.09 ng/mL (0-0.5)
[2021-03-27 00:51] VITALS: BP 122/67; PULSE 89; RESP 13; O2SAT 94
[2021-03-27 02:21] VITALS: BP 106/75; PULSE 86; RESP 13; TEMP 37.1; O2SAT 96
[2021-03-27] MEDS: ondansetron 2 mg/ML SDV 2 mL 4 MG IVP (02:21)
--- NOTE | 2021-04-01 12:49 | DCPLANNER ---
media production manager had message that patient received the monoclonal antibody infusion. media production manager called phone number [phone], unable to speak with patient at this time, a voicemail was left for patient.
== END 2021-03-27 02:23 | disposition home or self-care (01) ==
PROVIDERS: Emergency Provider Emergency Medicine; PCP Nurse Practitioner
DX: U07.1 COVID-19 (principal)
CPT/HCPCS: 80053; 84145; 85025; 86140; 96374; 96375; 96376; 99284; J1885; J2270; J2405

== ENCOUNTER → 2021-06-01 12:55 | Outpatient (BNVA) | payer OTHER, SELFPAY | PROVIDERS: PCP Nurse Practitioner; Visit Provider Internal Medicine Rheumatology | DX: L40.50 Arthropathic psoriasis, unspecified (principal); M54.89 Other dorsalgia; Z79.899 Other long term (current) drug therapy; E87.6 Hypokalemia; K21.9 Gastro-esophageal reflux disease without esophagitis; Z71.89 Other specified counseling | CPT/HCPCS: 99214 ==

== ENCOUNTER 2021-06-02 15:20 | Outpatient (CLI) | payer OTHER, SELFPAY ==
--- NOTE | 2021-06-02 15:27 | MM_ITS ---
WS: [id number] BILATERAL DIGITAL SCREENING MAMMOGRAPHY WITH CAD CLINICAL INFORMATION: SCREENING HISTORY: Screening mammogram. No current complaints. COMPARISON: March 10, 2020 TECHNIQUE: Bilateral CC and MLO views. FINDINGS: Scattered fibroglandular densities bilaterally. No suspicious focal mass, asymmetry, calcifications, or architectural distortion. No evidence of malignancy. MM/[place] [id number] IMPRESSION: BI-RADS: 1-Negative FOLLOW UP: 1 Year Follow-up Recommend return to annual screening mammography.
== END 2021-06-02 15:21 | disposition home or self-care (01) ==
LOC: RADSHAW 15:25
PROVIDERS: PCP Nurse Practitioner; Visit Provider Nurse Practitioner
DX: Z12.31 Encounter for screening mammogram for malignant neoplasm of breast (principal)
CPT/HCPCS: 77067

== ENCOUNTER 2021-06-23 09:39 | Emergency (ER) | payer OTHER, SELFPAY ==
[2021-06-23 10:02] VITALS: BP 176/80; PULSE 91; RESP 17; TEMP 36.6; O2SAT 97; BMI 35.4
--- NOTE | 2021-06-23 10:18 | XR_ITS ---
WS: [id number] XR chest 1V portable [id number] REASON FOR EXAM: left sided chest pain with inspiration FINDINGS: Chest is unchanged compared to 10/06/2020. The heart and mediastinum are within normal limits. Calcified granulomatous disease in both hemithoraces. No active pulmonary parenchymal or pleural disease. No significant abnormality of the bony thorax. XR/XR chest 1V portable [id number] IMPRESSION: No acute chest abnormality.
--- NOTE | 2021-06-23 10:20 | ED_ITS ---
Documented by User: [email or web address] Pizarro 06/23/21 15:04 HPI - Dizziness General: Chief Complaint: Dizziness Stated Complaint: [facility] Time Seen by Provider: 06/23/21 09:55 History of Present Illness: HPI Narrative: [facility] because [facility] was having left-sided chest pain with inspiration. Provider thought she might have a low potassium which apparently she has had over the last year that supervisor cutting and sewing room found. They were unable to do a stat potassium at the [facility] so sent here. Patient said chest pain hurts with deep inspiration and with movement. Denies shortness of breath or diaphoresis. MD elicited complaint: dizziness Onset (ago): hour(s) Timing: gradual onset Severity: mild Description: lightheadedness Context: other (Hypokalemia) History of similar symptoms: Yes Exacerbating factors: nothing Relieving factors: nothing Associated symptoms: Reports chest pain (With deep inspiration); Denies chills, headache(s), nausea, nasal congestion or vomiting Review of Systems Const: Denies: fever(s), chills or body aches Eyes: Denies: change in vision or blurry vision ENMT: Denies: throat pain or nasal congestion Card: Reports: chest pain (With deep inspiration); Denies: dyspnea on exertion Resp: Denies: dyspnea, productive cough or non-productive cough GI: Denies: abdominal pain, nausea or vomiting Musc: Denies: extremity pain Skin/Breast: Denies: rash Neuro: Reports: dizziness; Denies: headache(s) Psych: Denies: anxiety or depression Walter/Lymph: Denies: easy bruising PFSH ED PFSH: Medical History (Updated 06/23/21 @ 11:46 by SEAN Pizarro) Calculus, ureter Hematuria High risk medication use Immunization counseling Inflammatory back pain Inflammatory back pain Psoriatic arthritis Retained ureteral stent Surgical History History of appendectomy History of endometrial ablation History of tubal ligation S/P ureteral stent placement Family History Other Diabetes Hyperlipidemia Hypertension Denies family history of Rheumatoid arthritis Lupus Chronic kidney disease (CKD) Lung disease Cancer Stroke Social History Smoking and tobacco status: never smoked Alcohol intake: never Adopted: No Caregiver/support person: No Lives independently: No Household members: spouse Marital status: Current occupational status: employed Physical Exam Const: COMMON NORMALS: no acute distress, average body habitus and patient oriented x3 HENMT: COMMON NORMALS: normocephalic HEAD & SCALP: normal to inspection and normocephalic FACE & SINUS: normal facial exam Eye: COMMON NORMALS: conjunctivae normal GENERAL EYE: appearance normal, both eyes and all related structures CONJUNCTIVA: Yes conjunctivae normal Neck/C-Spine: COMMON NORMALS: no JVD Chest: COMMONS NORMALS: normal inspection of the chest Resp: COMMON NORMALS: normal respiratory effort and clear to auscultation bilaterally AUSCULTATION: clear to auscultation bilaterally Cardio: COMMON NORMALS: no JVD, regular rate and regular rhythm RATE: regular rate RHYTHM: regular rhythm GI: COMMON NORMALS: Normal to inspection, nondistended, normoactive bowel sounds present Extremity: COMMON NORMALS: normal to inspection and full ROM Neuro: COMMON NORMALS: patient oriented x3 Course Vital Signs: Vital signs: Vital Signs Temperature 97.8 F 06/23/21 10:02 Pulse Rate 64 06/23/21 11:50 Respiratory Rate 17 06/23/21 11:50 Blood Pressure 138/57 06/23/21 11:50 Pulse Oximetry 98 06/23/21 11:50 MDM - Dizziness Lab Data: Labs: Lab Results 06/23/21 06/23/21 06/23/21 10:24 10:24 10:24 WBC 7.6 10^3/uL 10^3/ uL (4.0-10.0) RBC 5.54 10^6/uL H 10 ^6/uL (4.1-5.3) Hgb 15.8 g/dL H g/dL (11.5-15.3) Hct 44.9 % % (37.0-47.0) MCV 81.0 fl fl (81-99) MCH 28.5 pg pg (28.0-34.0) MCHC 35.2 g/dL g/dL (30.0-36.0) RDW 13.2 % % (12.1-15.1) Plt Count 250 10^3/cmm 10^3 /cmm (130-400) MPV 11.7 fL H fL (7.4-10.4) Neut % (Auto) 52.5 % % Lymph % (Auto) 31.9 % % [place] % (Auto) 10.3 % % Eos % (Auto) 3.3 % % Baso % (Auto) 1.9 % % Neut # (Auto) 3.97 10^3/uL 10^3 /uL (1.8-7.7) Lymph # (Auto) 2.4 10^3/uL 10^3/ uL (0.8-4.8) [place] # (Auto) 0.8 10^3/uL 10^3/ uL (0.2-0.9) Eos # (Auto) 0.3 10^3/uL 10^3/ uL (0.0-0.8) Baso # (Auto) 0.1 10^3/uL 10^3/ uL (0.0-0.1) Nucleated RBC % (a uto) 0 % % Nucleated RBCs # 0.0 /100WBC /100W BC PT INR Sodium 138 mmol/L mmol/L (136-145) Potassium 3.5 mmol/L mmol/L (3.5-5.1) Chloride 102 mmol/L mmol/L (98-107) Carbon Dioxide 28 mmol/L mmol/L (22-29) Anion Gap 11.5 (5-19) BUN 8 mg/dL mg/dL (6-20) Creatinine 0.7 mg/dL mg/dL (0.5-0.9) GFR Calculation 88.9 mL/min L mL/ min (90-130) Glucose 102 mg/dL mg/dL (65-115) Calculated Osmolal ity 285 mOsm/kg mOsm/ kg (285-295) Calcium 9.9 mg/dL mg/dL (8.5-10.5) Troponin T Baselin e 7 ng/L ng/L (0-10) 06/23/21 10:24 WBC RBC Hgb Hct MCV MCH MCHC RDW Plt Count MPV Neut % (Auto) Lymph % (Auto) [place] % (Auto) Eos % (Auto) Baso % (Auto) Neut # (Auto) Lymph # (Auto) [place] # (Auto) Eos # (Auto) Baso # (Auto) Nucleated RBC % (a uto) Nucleated RBCs # PT 13.40 SECONDS SEC ONDS (12.1-14.9) INR 0.99 (0.8-1.2) Sodium Potassium Chloride Carbon Dioxide Anion Gap BUN Creatinine GFR Calculation Glucose Calculated Osmolal ity Calcium Troponin T Baselin e EKG Data^: EKG 1: EKG interpretation date: 06/23/21 EKG interpretation time: 10:33 Discharge Plan Discharge Patient Disposition: Home Clinical Impression: Acute costochondritis, Atypical chest pain Condition: Stable Prescriptions: New Celebrex 100 mg capsule 100 mg PO BID Qty: 20 RF: 0 No Action oxybutynin chloride 15 mg tablet extended release 24 hr 15 mg PO DAILY RF: 0 Humira Pen 40 mg/0.8 mL pen injector kit 40 mg SUBCUT Q14D Qty: 2 RF: 3 leflunomide 20 mg tablet 20 mg PO DAILY Qty: 90 RF: 0 pantoprazole 40 mg tablet,delayed release (DR/EC) See Rx Instructions PO BID Qty: 180 RF: 1 amlodipine 10 mg tablet 10 mg PO DAILY RF: 0 temazepam 15 mg capsule 15 mg PO .HS RF: 0 diclofenac sodium 1 % gel 4 g topical QID Qty: 200 RF: 2 prednisone 10 mg tablet See Rx Instructions PO .COMPLEX PRN (Reason: joint pain) Qty: 60 RF: 0 hydrocodone-acetaminophen 5-325 mg tablet 1 tab PO Q8H PRN (Reason: pain) Qty: 7 RF: 0 Zofran 4 mg tablet 4 mg PO Q6H PRN (Reason: nausea and vomiting) Qty: 10 RF: 0 Discharge Orders: Discharge ED (Routine); Ordered 06/23/21 Ordered By: Jones Levine Referrals: Karma Cordova FNP [Primary Care Provider] - Discharge Diet: Usual diet Discharge Activity: Increase activity as tolerated Patient Instructions: Costochondritis (ED) Activity Restrictions/Additional Instructions: Follow-up with medical provider as directed. Take medications as prescribed. Return to the ER or your medical provider if condition worsens. Please read and understand discharge instructions. If any questions ask please. Coding Level of Care Code ED Furnace Checker for Chg Fwd Exam Comprehensive Documented by User: Diego Gaytan DO 06/23/21 20:02 HPI - Dizziness General: Chief Complaint: Dizziness Stated Complaint: [facility] Time Seen by Provider: 06/23/21 09:55 PFS ED PFSH: Medical History (Updated 06/23/21 @ 11:46 by SEAN Pizarro) Calculus, ureter Hematuria High risk medication use Immunization counseling Inflammatory back pain Inflammatory back pain Psoriatic arthritis Retained ureteral stent Surgical History History of appendectomy History of endometrial ablation History of tubal ligation S/P ureteral stent placement Family History Other Diabetes Hyperlipidemia Hypertension Denies family history of Rheumatoid arthritis Lupus Chronic kidney disease (CKD) Lung disease Cancer Stroke Social History Smoking and tobacco status: never smoked Alcohol intake: never Adopted: No Caregiver/support person: No Lives independently: No Household members: spouse Marital status: Current occupational status: employed Course ED course: I was the emergency department physician on duty at the time this patient was seen by the midlevel practitioner. I did not interview, evaluate for an discussed this patient while they were in the emergency department. This patient's chart is being signed after review. Vital Signs: Vital signs: Vital Signs Temperature 97.8 F 06/23/21 10:02 Pulse Rate 64 06/23/21 11:50 Respiratory Rate 17 06/23/21 11:50 Blood Pressure 138/57 06/23/21 11:50 Pulse Oximetry 98 06/23/21 11:50 MDM - Dizziness Lab Data: Labs: Lab Results 06/23/21 06/23/21 06/23/21 10:24 10:24 10:24 WBC 7.6 10^3/uL 10^3/ uL (4.0-10.0) RBC 5.54 10^6/uL H 10 ^6/uL (4.1-5.3) Hgb 15.8 g/dL H g/dL (11.5-15.3) Hct 44.9 % % (37.0-47.0) MCV 81.0 fl fl (81-99) MCH 28.5 pg pg (28.0-34.0) MCHC 35.2 g/dL g/dL (30.0-36.0) RDW 13.2 % % (12.1-15.1) Plt Count 250 10^3/cmm 10^3 /cmm (130-400) MPV 11.7 fL H fL (7.4-10.4) Neut % (Auto) 52.5 % % Lymph % (Auto) 31.9 % % [place] % (Auto) 10.3 % % Eos % (Auto) 3.3 % % Baso % (Auto) 1.9 % % Neut # (Auto) 3.97 10^3/uL 10^3 /uL (1.8-7.7) Lymph # (Auto) 2.4 10^3/uL 10^3/ uL (0.8-4.8) [place] # (Auto) 0.8 10^3/uL 10^3/ uL (0.2-0.9) Eos # (Auto) 0.3 10^3/uL 10^3/ uL (0.0-0.8) Baso # (Auto) 0.1 10^3/uL 10^3/ uL (0.0-0.1) Nucleated RBC % (a uto) 0 % % Nucleated RBCs # 0.0 /100WBC /100W BC PT INR Sodium 138 mmol/L mmol/L (136-145) Potassium 3.5 mmol/L mmol/L (3.5-5.1) Chloride 102 mmol/L mmol/L (98-107) Carbon Dioxide 28 mmol/L mmol/L (22-29) Anion Gap 11.5 (5-19) BUN 8 mg/dL mg/dL (6-20) Creatinine 0.7 mg/dL mg/dL (0.5-0.9) GFR Calculation 88.9 mL/min L mL/ min (90-130) Glucose 102 mg/dL mg/dL (65-115) Calculated Osmolal ity 285 mOsm/kg mOsm/ kg (285-295) Calcium 9.9 mg/dL mg/dL (8.5-10.5) Troponin T Baselin e 7 ng/L ng/L (0-10) 06/23/21 10:24 WBC RBC Hgb Hct MCV MCH MCHC RDW Plt Count MPV Neut % (Auto) Lymph % (Auto) [place] % (Auto) Eos % (Auto) Baso % (Auto) Neut # (Auto) Lymph # (Auto) [place] # (Auto) Eos # (Auto) Baso # (Auto) Nucleated RBC % (a uto) Nucleated RBCs # PT 13.40 SECONDS SEC ONDS (12.1-14.9) INR 0.99 (0.8-1.2) Sodium Potassium Chloride Carbon Dioxide Anion Gap BUN Creatinine GFR Calculation Glucose Calculated Osmolal ity Calcium Troponin T Baselin e Discharge Plan Discharge Patient Disposition: Home Clinical Impression: Acute costochondritis, Atypical chest pain Condition: Stable Prescriptions: New Celebrex 100 mg capsule 100 mg PO BID Qty: 20 RF: 0 No Action oxybutynin chloride 15 mg tablet extended release 24 hr 15 mg PO DAILY RF: 0 Humira Pen 40 mg/0.8 mL pen injector kit 40 mg SUBCUT Q14D Qty: 2 RF: 3 leflunomide 20 mg tablet 20 mg PO DAILY Qty: 90 RF: 0 pantoprazole 40 mg tablet,delayed release (DR/EC) See Rx Instructions PO BID Qty: 180 RF: 1 amlodipine 10 mg tablet 10 mg PO DAILY RF: 0 temazepam 15 mg capsule 15 mg PO .HS RF: 0 diclofenac sodium 1 % gel 4 g topical QID Qty: 200 RF: 2 prednisone 10 mg tablet See Rx Instructions PO .COMPLEX PRN (Reason: joint pain) Qty: 60 RF: 0 hydrocodone-acetaminophen 5-325 mg tablet 1 tab PO Q8H PRN (Reason: pain) Qty: 7 RF: 0 Zofran 4 mg tablet 4 mg PO Q6H PRN (Reason: nausea and vomiting) Qty: 10 RF: 0 Discharge Orders: Discharge ED (Routine); Ordered 06/23/21 Ordered By: Jones Levine Referrals: Karma Cordova FNP [Primary Care Provider] - Discharge Diet: Usual diet Discharge Activity: Increase activity as tolerated Patient Instructions: Costochondritis (ED) Activity Restrictions/Additional Instructions: Follow-up with medical provider as directed. Take medications as prescribed. Return to the ER or your medical provider if condition worsens. Please read and understand discharge instructions. If any questions ask please. Coding Level of Care Code ED Furnace Checker for Stepan Fwd Exam Comprehensive
[2021-06-23] MEDS: sodium chloride 0.9% 1,000 ML 999 ML IV (10:50)
[2021-06-23 10:59] VITALS: BP 149/88; PULSE 93; RESP 18; O2SAT 96
[2021-06-23 11:00] LABS: Basophils # 0.1 10^3/uL (0.0-0.1); Basophils % 1.9 %; Eosinophils # 0.3 10^3/uL (0.0-0.8); Eosinophils % 3.3 %; Hematocrit 44.9 % (37.0-47.0); Hemoglobin 15.8 g/dL (11.5-15.3); Lymphocytes # 2.4 10^3/uL (0.8-4.8); Lymphocytes % 31.9 %; Mean Corpuscular HGB Conc 35.2 g/dL (30.0-36.0); Mean Corpuscular Hemoglobin 28.5 pg (28.0-34.0); Mean Platelet Volume 11.7 fL (7.4-10.4); Monocytes # 0.8 10^3/uL (0.2-0.9); Monocytes % 10.3 %; Neutrophils # 3.97 10^3/uL (1.8-7.7); Neutrophils % 52.5 %; Nucleated Red Blood Cells % 0 %; Platelet Count 250 10^3/cmm (130-400); Red Blood Count 5.54 10^6/uL (4.1-5.3); Red Cell Distribution Width 13.2 % (12.1-15.1); White Blood Count 7.6 10^3/uL (4.0-10.0)
[2021-06-23 11:11] LABS: INR 0.99 (0.8-1.2)
[2021-06-23 11:17] LABS: Anion Gap 11.5 (5-19); Blood Urea Nitrogen 8 mg/dL (6-20); Calcium 9.9 mg/dL (8.5-10.5); Carbon Dioxide 28 mmol/L (22-29); Chloride 102 mmol/L (98-107); Glomerular Filtration Rate 88.9 mL/min (90-130); Glucose 102 mg/dL (65-115); Osmolality Calculated 285 mOsm/kg (285-295); Potassium 3.5 mmol/L (3.5-5.1); Sodium 138 mmol/L (136-145)
[2021-06-23 11:21] LABS: Troponin(5th) Baseline 7 ng/L (0-10)
[2021-06-23 11:50] VITALS: BP 138/57; PULSE 64; RESP 17; O2SAT 98
--- NOTE | 2021-06-23 20:00 | W.ED.DIZZY ---
HPI - Dizziness General: Chief Complaint: Dizziness Stated Complaint: [facility] SENT FOR LOW POTASSIUM Time Seen by Provider: 06/23/21 09:55 History of Present Illness: Severity: mild Exacerbating factors: nothing Relieving factors: nothing PFSH ED PFSH: Medical History (Updated 06/23/21 @ 11:46 by SEAN Pizarro) Calculus, ureter Hematuria High risk medication use Immunization counseling Inflammatory back pain Inflammatory back pain Psoriatic arthritis Retained ureteral stent Surgical History History of appendectomy History of endometrial ablation History of tubal ligation S/P ureteral stent placement Family History Other Diabetes Hyperlipidemia Hypertension Denies family history of Rheumatoid arthritis Lupus Chronic kidney disease (CKD) Lung disease Cancer Stroke Social History Smoking and tobacco status: never smoked Alcohol intake: never Adopted: No Caregiver/support person: No Lives independently: No Household members: spouse Marital status: Current occupational status: employed Course Vital Signs: Vital signs: Vital Signs Temperature 97.8 F 06/23/21 10:02 Pulse Rate 64 06/23/21 11:50 Respiratory Rate 17 06/23/21 11:50 Blood Pressure 138/57 06/23/21 11:50 Pulse Oximetry 98 06/23/21 11:50 MDM - Dizziness Lab Data: Labs: Lab Results 06/23/21 06/23/21 06/23/21 10:24 10:24 10:24 WBC 7.6 10^3/uL 10^3/ uL (4.0-10.0) RBC 5.54 10^6/uL H 10 ^6/uL (4.1-5.3) Hgb 15.8 g/dL H g/dL (11.5-15.3) Hct 44.9 % % (37.0-47.0) MCV 81.0 fl fl (81-99) MCH 28.5 pg pg (28.0-34.0) MCHC 35.2 g/dL g/dL (30.0-36.0) RDW 13.2 % % (12.1-15.1) Plt Count 250 10^3/cmm 10^3 /cmm (130-400) MPV 11.7 fL H fL (7.4-10.4) Neut % (Auto) 52.5 % % Lymph % (Auto) 31.9 % % [place] % (Auto) 10.3 % % Eos % (Auto) 3.3 % % Baso % (Auto) 1.9 % % Neut # (Auto) 3.97 10^3/uL 10^3 /uL (1.8-7.7) Lymph # (Auto) 2.4 10^3/uL 10^3/ uL (0.8-4.8) [place] # (Auto) 0.8 10^3/uL 10^3/ uL (0.2-0.9) Eos # (Auto) 0.3 10^3/uL 10^3/ uL (0.0-0.8) Baso # (Auto) 0.1 10^3/uL 10^3/ uL (0.0-0.1) Nucleated RBC % (a uto) 0 % % Nucleated RBCs # 0.0 /100WBC /100W BC PT INR Sodium 138 mmol/L mmol/L (136-145) Potassium 3.5 mmol/L mmol/L (3.5-5.1) Chloride 102 mmol/L mmol/L (98-107) Carbon Dioxide 28 mmol/L mmol/L (22-29) Anion Gap 11.5 (5-19) BUN 8 mg/dL mg/dL (6-20) Creatinine 0.7 mg/dL mg/dL (0.5-0.9) GFR Calculation 88.9 mL/min L mL/ min (90-130) Glucose 102 mg/dL mg/dL (65-115) Calculated Osmolal ity 285 mOsm/kg mOsm/ kg (285-295) Calcium 9.9 mg/dL mg/dL (8.5-10.5) Troponin T Baselin e 7 ng/L ng/L (0-10) 06/23/21 10:24 WBC RBC Hgb Hct MCV MCH MCHC RDW Plt Count MPV Neut % (Auto) Lymph % (Auto) [place] % (Auto) Eos % (Auto) Baso % (Auto) Neut # (Auto) Lymph # (Auto) [place] # (Auto) Eos # (Auto) Baso # (Auto) Nucleated RBC % (a uto) Nucleated RBCs # PT 13.40 SECONDS SEC ONDS (12.1-14.9) INR 0.99 (0.8-1.2) Sodium Potassium Chloride Carbon Dioxide Anion Gap BUN Creatinine GFR Calculation Glucose Calculated Osmolal ity Calcium Troponin T Baselin e Discharge Plan Discharge Patient Disposition: Home Clinical Impression: Acute costochondritis, Atypical chest pain Condition: Stable Prescriptions: New Celebrex 100 mg capsule 100 mg PO BID Qty: 20 RF: 0 No Action oxybutynin chloride 15 mg tablet extended release 24 hr 15 mg PO DAILY RF: 0 Humira Pen 40 mg/0.8 mL pen injector kit 40 mg SUBCUT Q14D Qty: 2 RF: 3 leflunomide 20 mg tablet 20 mg PO DAILY Qty: 90 RF: 0 pantoprazole 40 mg tablet,delayed release (DR/EC) See Rx Instructions PO BID Qty: 180 RF: 1 amlodipine 10 mg tablet 10 mg PO DAILY RF: 0 temazepam 15 mg capsule 15 mg PO .HS RF: 0 diclofenac sodium 1 % gel 4 g topical QID Qty: 200 RF: 2 prednisone 10 mg tablet See Rx Instructions PO .COMPLEX PRN (Reason: joint pain) Qty: 60 RF: 0 hydrocodone-acetaminophen 5-325 mg tablet 1 tab PO Q8H PRN (Reason: pain) Qty: 7 RF: 0 Zofran 4 mg tablet 4 mg PO Q6H PRN (Reason: nausea and vomiting) Qty: 10 RF: 0 Discharge Orders: Discharge ED (Routine); Ordered 06/23/21 Ordered By: Jones Levine Referrals: Karma Cordova FNP [Primary Care Provider] - Discharge Diet: Usual diet Discharge Activity: Increase activity as tolerated Patient Instructions: Costochondritis (ED) Activity Restrictions/Additional Instructions: Follow-up with medical provider as directed. Take medications as prescribed. Return to the ER or your medical provider if condition worsens. Please read and understand discharge instructions. If any questions ask please. Coding Level of Care Code ED Materials Engineer for Stepan Ervin
== END 2021-06-23 11:57 | disposition home or self-care (01) ==
PROVIDERS: Emergency Provider Nurse Practitioner Family; PCP Nurse Practitioner
DX: R07.89 Other chest pain (principal); M94.0 Chondrocostal junction syndrome [Tietze]
CPT/HCPCS: 71045; 80048; 84484; 85025; 85610; 96360; 99283; J7030

== ENCOUNTER → 2021-10-05 13:05 | Outpatient (BNVA) | payer OTHER, SELFPAY | PROVIDERS: PCP Nurse Practitioner; Visit Provider Internal Medicine Rheumatology | DX: L40.50 Arthropathic psoriasis, unspecified (principal); M54.89 Other dorsalgia; Z79.899 Other long term (current) drug therapy; Z71.89 Other specified counseling | CPT/HCPCS: 99204 ==

== ENCOUNTER 2022-02-28 20:19 | Emergency (ER) | payer OTHER, SELFPAY ==
[2022-02-28 20:26] VITALS: BP 177/100; PULSE 89; RESP 18; TEMP 36.7; O2SAT 97; BMI 33.9
--- NOTE | 2022-02-28 20:40 | CTR_ITS ---
PROCEDURE INFORMATION: Exam: CT Abdomen And Pelvis Without Contrast Exam date and time: 02/28/2022 9:48 PM Age: 51 years old Clinical indication: Abdominal pain; Flank; Right; Prior surgery; Surgery date: 6+ months; Surgery type: Stones removed; Additional info: Flank pain TECHNIQUE: Imaging protocol: Computed tomography of the abdomen and pelvis without contrast. Radiation optimization: All CT scans at this facility use at least one of these dose optimization techniques: automated exposure control; mA and/or kV adjustment per patient size (includes targeted exams where dose is matched to clinical indication); or iterative reconstruction. COMPARISON: CT abdomen pelvis w con* [id number] 04/18/2020 4:18 AM RADIATION DOSE METRICS: Total DLP (mGy-cm): 1623.13 FINDINGS: Lungs: The lung bases are clear. Pleural spaces: There is incidental 3 mm left lower lobe noncalcified pleural plaque which is unchanged since 2019. Liver: The liver is slightly fatty but not enlarged. Gallbladder and bile ducts: Normal. No calcified stones. No ductal dilation. Pancreas: Normal. No ductal dilation. Spleen: Normal. No splenomegaly. Adrenal glands: Normal. No mass. Kidneys and ureters: There are several 1 mm or less nonobstructing stones in the right kidney. However there is no hydronephrosis or perinephric stranding. The ureters and urinary bladder are unremarkable. Stomach and bowel: The stomach is filled with food. Small bowel and colon are unremarkable. Appendix: No evidence of appendicitis. Intraperitoneal space: Unremarkable. No free air. No significant fluid collection. Vasculature: Unremarkable. No abdominal aortic aneurysm. Lymph nodes: Unremarkable. No enlarged lymph nodes. Urinary bladder: See Kidneys and ureters finding. Reproductive: The uterus is absent and the ovaries are not seen. Bones/joints: Unremarkable. No acute fracture. Soft tissues: There is a 3 cm umbilical hernia consisting of fatty tissue only. CT/CT kidney stone [id number] IMPRESSION: 1. No acute abdominal or pelvic findings. 2. Several very small non-obstructing right intrarenal calculi
[2022-02-28 20:46] LABS: Basophils # 0.1 10^3/uL (0.0-0.1); Basophils % 1.3 %; Eosinophils # 0.2 10^3/uL (0.0-0.8); Eosinophils % 1.8 %; Hematocrit 44.3 % (37.0-47.0); Hemoglobin 15.4 g/dL (11.5-15.3); Lymphocytes # 3.7 10^3/uL (0.8-4.8); Mean Corpuscular HGB Conc 34.8 g/dL (30.0-36.0); Mean Corpuscular Hemoglobin 28.1 pg (28.0-34.0); Mean Corpuscular Volume 80.7 fl (81-99); Mean Platelet Volume 11.2 fL (7.4-10.4); Monocytes # 0.8 10^3/uL (0.2-0.9); Monocytes % 7.3 %; Neutrophils # 5.77 10^3/uL (1.8-7.7); Neutrophils % 54.4 %; Nucleated Red Blood Cells % 0 %; Platelet Count 285 10^3/cmm (130-400); Red Blood Count 5.49 10^6/uL (4.1-5.3); Red Cell Distribution Width 13.1 % (12.1-15.1); White Blood Count 10.6 10^3/uL (4.0-10.0)
[2022-02-28 21:06] LABS: Alanine Aminotransferase 19 U/L (0-33); Albumin Level 4.6 g/dL (3.5-5.2); Alkaline Phosphatase 94 IU/L (35-105); Anion Gap 13.8 (5-19); Aspartate Amino Transferase 16 U/L (0-32); Blood Urea Nitrogen 12 mg/dL (6-20); Calcium 9.9 mg/dL (8.5-10.5); Carbon Dioxide 26 mmol/L (22-29); Chloride 106 mmol/L (98-107); Globulin 2.8 g/dL (1.3-4.6); Glomerular Filtration Rate 88.9 mL/min (90-130); Glucose 72 mg/dL (65-115); Lactate (Lactic Acid level) 1.2 mmol/L (0.5-2.2); Lipase 39 U/L (13-60); Osmolality Calculated 292 mOsm/kg (285-295); Potassium 3.8 mmol/L (3.5-5.1); Sodium 142 mmol/L (136-145); Total Bilirubin 0.2 mg/dL (0.15-1.2); Total Protein 7.4 g/dL (6.6-8.7)
[2022-02-28] MEDS: sodium chloride 0.9% 1,000 ML 999 ML IV (23:00)
[2022-02-28] MEDS: ondansetron 2 mg/ML SDV 2 mL 4 MG IVP (23:00)
[2022-02-28] MEDS: HYDROmorphone 1 mg/mL INJ 1 mL IVP (23:00)
--- NOTE | 2022-02-28 23:01 | ED_ITS ---
HPI - Abdominal Pain General: Chief Complaint: Abdominal Pain Stated Complaint: severe abdominal/back pain Time Seen by Provider: 02/28/22 22:09 Source: patient Mode of arrival: ambulatory Limitations: no limitations History of Present Illness: 51-year-old female states she has a history of kidney stones states started having severe right-sided flank pain that radiated to her groin today roughly 2 denies any worsening improving factors PM. She states her pain is currently a 9 out of 10 and feels like her previous kidney stones. She states has not had a kidney stone in 2 years. Patient denies any vomiting or diarrhea but has had some nausea. Associated Symptoms: Reports nausea; Denies chills and fever(s) Review of Systems Const: Denies: fever(s), chills, body aches or change in appetite Eyes: Denies: blurry vision or eye discomfort ENMT: Denies: throat pain or dental pain Card: Denies: chest pain Resp: Denies: dyspnea GI: Reports: abdominal pain and nausea : Reports: flank pain Musc: Denies: neck pain or back pain Skin/Breast: Denies: rash Neuro: Denies: headache(s) Psych: Denies: depression Walter/Lymph: Denies: easy bruising All/Imm: Denies: urticaria PFSH ED PFSH: Medical History Calculus, ureter Hematuria High risk medication use Immunization counseling Inflammatory back pain Inflammatory back pain Psoriatic arthritis Retained ureteral stent Surgical History History of appendectomy History of endometrial ablation History of tubal ligation S/P ureteral stent placement Family History Other Diabetes Hyperlipidemia Hypertension Denies family history of Rheumatoid arthritis Lupus Chronic kidney disease (CKD) Lung disease Cancer Stroke Social History Smoking and tobacco status: never smoked Alcohol intake: never Adopted: No Caregiver/support person: No Lives independently: No Household members: spouse Marital status: Current occupational status: employed Physical Exam Const: COMMON NORMALS: no acute distress, patient oriented x3 and healthy appearing HENMT: COMMON NORMALS: normocephalic and atraumatic HEAD & SCALP: normocephalic and atraumatic Eye: COMMON NORMALS: Equal, round and reactive pupils present and EOMs intact bilaterally PUPIL: Yes Equal, round and reactive pupils present Neck/C-Spine: COMMON NORMALS: full ROM and supple Chest: COMMONS NORMALS: normal inspection of the chest and normal palpation of entire chest wall Resp: COMMON NORMALS: normal respiratory effort, No retractions, No use of accessory muscles and clear to auscultation bilaterally AUSCULTATION: clear to auscultation bilaterally Cardio: COMMON NORMALS: regular rate, regular rhythm and No murmurs present (Cardio) RATE: regular rate RHYTHM: regular rhythm GI: COMMON NORMALS: Normal to inspection, nondistended, normoactive bowel sounds present, Soft to palpation, non-tender and no masses PALPATION: Yes Soft to palpation Extremity: COMMON NORMALS: normal to inspection and full ROM Neuro: COMMON NORMALS: patient oriented x3, moves all extremities and no focal motor deficits Psych: COMMON NORMALS: mental status grossly normal, Normal thought process present and cooperative THOUGHT PROCESS: Normal thought process present Skin: COMMON NORMALS: no rashes or lesions noted and no wounds GENERAL SKIN EXAM: no rashes or lesions noted Course Vital Signs: Vital signs: Vital Signs Temperature 98.1 F 02/28/22 20:26 Pulse Rate 73 03/01/22 00:26 Respiratory Rate 18 03/01/22 00:26 Blood Pressure 152/92 03/01/22 00:26 Pulse Oximetry 94 03/01/22 00:26 MDM - Abdominal Pain Medical Decision Making Patient presents here with flank pain that is since resolved. Patient could have possibly passed kidney stone does have intrarenal stones at this time no stones in her ureter. Urinalysis blood work is all normal her abdominal exam is benign she stable for discharge she is to follow-up with her PCP and return if worsening she understands agrees to plan. Lab Data : 02/28/22 20:37 02/28/22 20:37 Labs/Radiology: Radiology Impressions Abdomen/Pelvis CT 02/28/22 20:40 IMPRESSION: 1. No acute abdominal or pelvic findings. 2. Several very small non-obstructing right intrarenal calculi Laboratory Results WBC 10.6 10^3/uL (4.0-10.0) H 02/28/22 20:37 RBC 5.49 10^6/uL (4.1-5.3) H 02/28/22 20:37 Hgb 15.4 g/dL (11.5-15.3) H 02/28/22 20:37 Hct 44.3 % (37.0-47.0) 02/28/22 20:37 MCV 80.7 fl (81-99) L 02/28/22 20:37 MCH 28.1 pg (28.0-34.0) 02/28/22 20:37 MCHC 34.8 g/dL (30.0-36.0) 02/28/22 20:37 RDW 13.1 % (12.1-15.1) 02/28/22 20:37 Plt Count 285 10^3/cmm (130-400) 02/28/22 20:37 MPV 11.2 fL (7.4-10.4) H 02/28/22 20:37 Neut % (Auto) 54.4 % 02/28/22 20:37 Lymph % (Auto) 35.0 % 02/28/22 20:37 [place] % (Auto) 7.3 % 02/28/22 20:37 Eos % (Auto) 1.8 % 02/28/22 20:37 Baso % (Auto) 1.3 % 02/28/22 20:37 Neut # (Auto) 5.77 10^3/uL (1.8-7.7) 02/28/22 20:37 Lymph # (Auto) 3.7 10^3/uL (0.8-4.8) 02/28/22 20:37 [place] # (Auto) 0.8 10^3/uL (0.2-0.9) 02/28/22 20:37 Eos # (Auto) 0.2 10^3/uL (0.0-0.8) 02/28/22 20:37 Baso # (Auto) 0.1 10^3/uL (0.0-0.1) 02/28/22 20:37 Nucleated RBC % (auto) 0 % 02/28/22 20:37 Nucleated RBCs # 0.0 /100WBC 02/28/22 20:37 Sodium 142 mmol/L (136-145) 02/28/22 20:37 Potassium 3.8 mmol/L (3.5-5.1) 02/28/22 20:37 Chloride 106 mmol/L (98-107) 02/28/22 20:37 Carbon Dioxide 26 mmol/L (22-29) 02/28/22 20:37 Anion Gap 13.8 (5-19) 02/28/22 20:37 BUN 12 mg/dL (6-20) 02/28/22 20:37 Creatinine 0.7 mg/dL (0.5-0.9) 02/28/22 20:37 GFR Calculation 88.9 mL/min (90-130) L 02/28/22 20:37 Glucose 72 mg/dL (65-115) 02/28/22 20:37 Calculated Osmolality 292 mOsm/kg (285-295) 02/28/22 20:37 Lactate 1.2 mmol/L (0.5-2.2) 02/28/22 20:37 Calcium 9.9 mg/dL (8.5-10.5) 02/28/22 20:37 Total Bilirubin 0.2 mg/dL (0.15-1.2) 02/28/22 20:37 AST 16 U/L (0-32) 02/28/22 20:37 ALT 19 U/L (0-33) 02/28/22 20:37 Alkaline Phosphatase 94 IU/L (35-105) 02/28/22 20:37 Total Protein 7.4 g/dL (6.6-8.7) 02/28/22 20:37 Albumin 4.6 g/dL (3.5-5.2) 02/28/22 20:37 Globulin 2.8 g/dL (1.3-4.6) 02/28/22 20:37 Lipase 39 U/L (13-60) 02/28/22 20:37 Urine Color Yellow (Yellow) 03/01/22 00:23 Urine Appearance Clear (CLEAR) 03/01/22 00:23 Urine pH 6.5 (5-7) 03/01/22 00:23 Ur Specific [place] 1.015 (1.005-1.030) 03/01/22 00:23 Urine Protein Neg (Negative) 03/01/22 00:23 Urine Glucose (UA) Norm (Normal) 03/01/22 00:23 Urine Ketones Negative (Negative) 03/01/22 00:23 Urine Blood Neg (Negative) 03/01/22 00:23 Urine Nitrate Negative (Negative) 03/01/22 00:23 Urine Bilirubin Neg (Negative) 03/01/22 00:23 Urine Urobilinogen Norm mg/dL (Negative) 03/01/22 00:23 Ur Leukocyte Esterase Negative (Negative) 03/01/22 00:23 Discharge Plan Discharge Patient Disposition: Home Clinical Impression: Flank pain Condition: Stable Prescriptions: New hydrocodone-acetaminophen 5-325 mg tablet 1 tab PO Q6H PRN (Reason: pain) Qty: 14 0RF ondansetron 4 mg tablet,disintegrating 4 mg PO Q6H PRN (Reason: nausea and vomiting) Qty: 14 0RF No Action oxybutynin chloride 15 mg tablet extended release 24 hr 15 mg PO DAILY 0RF amlodipine 10 mg tablet 10 mg PO DAILY 0RF temazepam 15 mg capsule 15 mg PO .HS 0RF diclofenac sodium 1 % gel 4 g topical QID Qty: 200 2RF Rx Instructions: apply to affected area as needed Humira Pen 40 mg/0.8 mL pen injector kit 40 mg SUBCUT Q14D Qty: 2 3RF pantoprazole 40 mg tablet,delayed release (DR/EC) See Rx Instructions PO BID Qty: 180 1RF Rx Instructions: take in AM 30 minutes before meal PO twice a day; prednisone 10 mg tablet See Rx Instructions PO .COMPLEX PRN (Reason: joint pain) Qty: 60 0RF Rx Instructions: take 1 tab daily for 5-7 days prn joint pain flare PO PRN; leflunomide 20 mg tablet 20 mg PO DAILY Qty: 30 0RF hydrocodone-acetaminophen 5-325 mg tablet 1 tab PO Q8H PRN (Reason: pain) Qty: 7 0RF Zofran 4 mg tablet 4 mg PO Q6H PRN (Reason: nausea and vomiting) Qty: 10 0RF Celebrex 100 mg capsule 100 mg PO BID Qty: 20 0RF Discharge Orders: Discharge ED (Routine); Ordered 03/01/22 Ordered By: Maddy Palmer Referrals: Karma Cordova FNP [Primary Care Provider] - 1-3 days Discharge Diet: Advance as tolerated Discharge Activity: Resume usual activity Patient Instructions: Flank Pain (ED), Opioid Safety Coding Level of Care Code ED Rehabilitation Specialist for Chg Fwd Exam Comprehensive
[2022-02-28 23:15] VITALS: BP 171/89; PULSE 82; RESP 18; O2SAT 96
--- NOTE | 2022-02-28 23:16 | PC.NURSE ---
Pt. states that in the past she had a 10mm kidney stone that required surgical intervention. Pt. states that this time feels different than the last kidney stone.
[2022-03-01 00:26] VITALS: BP 152/92; PULSE 73; RESP 18; O2SAT 94
--- NOTE | 2022-03-01 00:29 | PC.NURSE ---
Pt. sleeping in bed. Pt. states that she has no needs at this time.
[2022-03-01 00:35] LABS: Add Urine Microscopic? NO; Charge for UA Resulting for Rev
[2022-03-01 00:37] LABS: Protein Urine Neg (Negative); Specific Gravity, Urine 1.015 (1.005-1.030); Urine Appearance Clear (CLEAR); Urine Color Yellow (Yellow); pH Urine 6.5 (5-7)
[2022-03-01 00:38] LABS: Bilirubin Urine Neg (Negative); Blood Urine Neg (Negative); Glucose Urine UA Norm (Normal); Ketones Urine Negative (Negative); Leukocyte Esterase Urine Negative (Negative); Nitrate Urine Negative (Negative); Urobilinogen Urine Norm (Negative)
== END 2022-03-01 00:56 | disposition home or self-care (01) ==
PROVIDERS: Emergency Provider Emergency Medicine; PCP Nurse Practitioner
DX: R10.9 Unspecified abdominal pain (principal); Z87.442 Personal history of urinary calculi
CPT/HCPCS: 74176; 80053; 81003; 83605; 83690; 85025; 96361; 96374; 96375; 99284; J1170; J2405; J7030

== ENCOUNTER → 2022-05-22 14:51 | Outpatient (BNVA) | payer OTHER, SELFPAY | PROVIDERS: PCP Nurse Practitioner; Visit Provider Internal Medicine Rheumatology | DX: L40.50 Arthropathic psoriasis, unspecified (principal); Z79.899 Other long term (current) drug therapy; Z71.89 Other specified counseling; Z90.710 Acquired absence of both cervix and uterus | CPT/HCPCS: 36415; 80076; 82565; 85025; 86140; 99214 ==

== ENCOUNTER 2022-05-30 15:21 | Outpatient (CLI) | payer OTHER, SELFPAY ==
--- NOTE | 2022-05-30 15:26 | MM_ITS ---
WS: [id number] BILATERAL 3D TOMOSYNTHESIS DIGITAL SCREENING MAMMOGRAPHY WITH CAD CLINICAL INFORMATION: SCREENING HISTORY: Screening mammogram. No current complaints. COMPARISON: June 02, 2021 TECHNIQUE: Bilateral CC and MLO views. FINDINGS: Scattered fibroglandular densities bilaterally. No suspicious focal mass, asymmetry, calcifications, or architectural distortion. No evidence of malignancy. MM/[place] [id number] IMPRESSION: BI-RADS: 1-Negative FOLLOW UP: 1 Year Follow-up Recommend return to annual screening mammography.
== END 2022-05-30 15:22 | disposition home or self-care (01) ==
LOC: RAD 15:24
PROVIDERS: PCP Nurse Practitioner; Visit Provider Nurse Practitioner
DX: Z12.31 Encounter for screening mammogram for malignant neoplasm of breast (principal)
CPT/HCPCS: 77063; 77067

== ENCOUNTER → 2022-09-20 11:38 | Outpatient (BNVA) | payer OTHER, SELFPAY | PROVIDERS: PCP Nurse Practitioner; Visit Provider Internal Medicine Rheumatology | DX: L40.50 Arthropathic psoriasis, unspecified (principal); Z79.899 Other long term (current) drug therapy; Z71.89 Other specified counseling | CPT/HCPCS: 36415; 80076; 82565; 85025; 86140; 99214 ==

== ENCOUNTER 2022-10-15 17:44 | Emergency (ER) | payer OTHER, SELFPAY ==
[2022-10-15 17:48] VITALS: BP 161/107; PULSE 107; RESP 16; TEMP 36.7; O2SAT 96; BMI 36.3
--- NOTE | 2022-10-15 17:56 | ED_ITS ---
HPI - SOB/Dyspnea General: Chief Complaint: Shortness of Breath/Dyspnea Stated Complaint: Shoulder and upper back pain, SOB Time Seen by Provider: 10/15/22 17:51 History of Present Illness: HPI Narrative: 52-year-old female comes in today with some complaints of weakness and increased shortness of breath over the last 4 days. Patient reports some chills and some chest discomfort. Patient reports that she just do not feel right. Patient has a history of psoriatic arthritis, inflammatory back pain syndrome, high risk medication use, hypertension, GERD. Patient does take bupropion routinely, and some hormone replacement. Associated symptoms: Reports chest pain; Deny nausea Review of Systems Const: Reports: chills Card: Reports: chest pain Resp: Reports: dyspnea GI: Denies: nausea or diarrhea PFSH ED PFSH: Medical History Calculus, ureter Hematuria High risk medication use Immunization counseling Inflammatory back pain Inflammatory back pain Psoriatic arthritis Retained ureteral stent Surgical History History of appendectomy History of endometrial ablation History of tubal ligation S/P ureteral stent placement Family History Other Diabetes Hyperlipidemia Hypertension Denies family history of Rheumatoid arthritis Lupus Chronic kidney disease (CKD) Lung disease Cancer Stroke Social History Smoking and tobacco status: never smoked Alcohol intake: never Adopted: No Caregiver/support person: No Lives independently: No Household members: spouse Marital status: Current occupational status: employed Physical Exam Const: COMMON NORMALS: alert HENMT: COMMON NORMALS: normocephalic HEAD & SCALP: normocephalic MOUTH: moist mucous membranes abnormal Neck/C-Spine: COMMON NORMALS: full ROM Resp: COMMON NORMALS: normal respiratory effort and clear to auscultation bilaterally AUSCULTATION: clear to auscultation bilaterally Cardio: COMMON NORMALS: regular rate and regular rhythm RATE: regular rate RHYTHM: regular rhythm GI: COMMON NORMALS: Soft to palpation and non-tender PALPATION: Yes Soft to palpation Extremity: COMMON NORMALS: normal to inspection, full ROM and no pedal edema Neuro: SENSORIUM/ORIENTATION: Yes alert Skin: COMMON NORMALS: turgor normal GENERAL SKIN EXAM: turgor normal Course Vital Signs: Vital signs: Vital Signs Temperature 98.0 F 10/15/22 17:48 Pulse Rate 91 10/15/22 18:47 Respiratory Rate 16 10/15/22 17:48 Blood Pressure 183/68 10/15/22 18:47 Pulse Oximetry 95 10/15/22 18:47 Oxygen Delivery Me thod 10/15/22 17:48 MDM - SOB/Dyspnea Medical Decision Making 52-year-old female comes in today for complaints of weakness and increased shortness of breath with activity. Patient reports symptoms for the last 3 to 4 days. Patient did report slipping and falling on the ice 3 days ago but only landed on her knee. Patient is concerned about the weakness and the shortness of breath. Patient appears in no acute distress. Lungs are clear to ausc ultation. Patient range of motion of extremities are normal. Palpation of the cervical and thoracic and lumbar spine indicates no tenderness. No edema is noted in the extremities. Patient vital signs note some mild elevation of blood pressure at 161, pulse was between 80 and 100. Patient was afebrile. Differential diagnosis includes but not limited to viral syndrome, anxiety disorder, pneumonia, pulmonary embolism. Laboratory values were unremarkable. Patient did note to have some increased in her CBC red blood cell count. Patient reported that this was chronic. No elevation in cardiac enzymes troponin, or BNP, or D-dimer was noted. Chest x-ray was clear. Electrolytes were normal and liver enzymes were normal. Reviewed exam with patient with recommendations for treatment follow-up. Patient felt better at discharge. Suspect patient may either have a viral illness and reassured patient. Patient reported understanding agreed to plan. Lab Data 10/15/22 18:14 10/15/22 18:14 Labs/Radiology: Radiology Impressions Chest X-Ray 10/15/22 18:11 IMPRESSION: No acute findings. Laboratory Results WBC 8.5 10^3/uL (4.0-10.0) 10/15/22 18:14 RBC 5.82 10^6/uL (4.1-5.3) H 10/15/22 18:14 Hgb 15.5 g/dL (11.5-15.3) H 10/15/22 18:14 Hct 48.1 % (37.0-47.0) H 10/15/22 18:14 MCV 82.6 fl (81-99) 10/15/22 18:14 MCH 26.6 pg (28.0-34.0) L 10/15/22 18:14 MCHC 32.2 g/dL (30.0-36.0) 10/15/22 18:14 RDW 13.5 % (12.1-15.1) 10/15/22 18:14 Plt Count 299 10^3/cmm (130-400) 10/15/22 18:14 MPV 11.0 fL (7.4-10.4) H 10/15/22 18:14 Neut % (Auto) 52.6 % 10/15/22 18:14 Lymph % (Auto) 36.6 % 10/15/22 18:14 [place] % (Auto) 7.3 % 10/15/22 18:14 Eos % (Auto) 2.5 % 10/15/22 18:14 Baso % (Auto) 0.9 % 10/15/22 18:14 Neut # (Auto) 4.46 10^3/uL (1.8-7.7) 10/15/22 18:14 Lymph # (Auto) 3.1 10^3/uL (0.8-4.8) 10/15/22 18:14 [place] # (Auto) 0.6 10^3/uL (0.2-0.9) 10/15/22 18:14 Eos # (Auto) 0.2 10^3/uL (0.0-0.8) 10/15/22 18:14 Baso # (Auto) 0.1 10^3/uL (0.0-0.1) 10/15/22 18:14 Nucleated RBC % (auto) 0 % 10/15/22 18:14 Nucleated RBCs # 0.0 /100WBC 10/15/22 18:14 D-Dimer 0.31 ug/mIFEU (0-0.59) 10/15/22 18:14 Sodium 141 mmol/L (136-145) 10/15/22 18:14 Potassium 3.5 mmol/L (3.5-5.1) 10/15/22 18:14 Chloride 106 mmol/L (98-107) 10/15/22 18:14 Carbon Dioxide 25 mmol/L (22-29) 10/15/22 18:14 Anion Gap 13.5 (5-19) 10/15/22 18:14 BUN 10 mg/dL (6-20) 10/15/22 18:14 Creatinine 0.8 mg/dL (0.5-0.9) 10/15/22 18:14 GFR Calculation 75.9 mL/min (90-130) L 10/15/22 18:14 Glucose 91 mg/dL (65-115) 10/15/22 18:14 Calculated Osmolality 291 mOsm/kg (285-295) 10/15/22 18:14 Calcium 9.2 mg/dL (8.5-10.5) 10/15/22 18:14 Total Bilirubin 0.2 mg/dL (0.15-1.2) 10/15/22 18:14 AST 16 U/L (0-32) 10/15/22 18:14 ALT 27 U/L (0-33) 10/15/22 18:14 Alkaline Phosphatase 100 U/L (35-105) 10/15/22 18:14 Troponin T Baseline 6 ng/L (0-10) 10/15/22 18:14 NT-Pro-B Natriuret Pep 36 pg/mL (0-125) 10/15/22 18:14 Total Protein 6.0 g/dL (6.6-8.7) L 10/15/22 18:14 Albumin 4.0 g/dL (3.5-5.2) 10/15/22 18:14 Globulin 2.0 g/dL (1.3-4.6) 10/15/22 18:14 Lipase 26 U/L (13-60) 10/15/22 18:14 Urine Color Yellow (Yellow) 10/15/22 19:14 Urine Appearance Clear (CLEAR) 10/15/22 19:14 Urine pH 6 (5-7) 10/15/22 19:14 Ur Specific [place] 1.005 (1.005-1.030) 10/15/22 19:14 Urine Protein Neg (Negative) 10/15/22 19:14 Urine Glucose (UA) Norm (Normal) 10/15/22 19:14 Urine Ketones Negative (Negative) 10/15/22 19:14 Urine Blood Neg (Negative) 10/15/22 19:14 Urine Nitrate Negative (Negative) 10/15/22 19:14 Urine Bilirubin Neg (Negative) 10/15/22 19:14 Urine Urobilinogen Neg mg/dL (Negative) 10/15/22 19:14 Ur Leukocyte Esterase Negative (Negative) 10/15/22 19:14 EKG Data EKG 1: EKG Interpretation Date: 10/15/22 EKG interpretation time: 18:10 Prior EKG tracings: not available for review Interpretation: EKG shows sinus rhythm with a regular rate [address] elevation or ectopy is noted. No prior exams available for comparison. Discharge Plan Discharge Patient Disposition: Home Clinical Impression: Shortness of breath Condition: Stable Prescriptions: No Action oxybutynin chloride 15 mg tablet extended release 24 hr 15 mg PO DAILY leflunomide 20 mg tablet 20 mg PO DAILY Qty: 30 3RF prednisone 20 mg tablet See Rx Instructions PO .COMPLEX PRN (Reason: joint pain flare) Qty: 30 1RF Rx Instructions: take 1 or 2 tab daily for 3-7 days as needed for arthritis flare PO PRN; estradiol 0.05 mg/24 hr patch semiweekly See Rx Instructions .ROUTE .COMPLEX Rx Instructions: 0.05 mg transdermally - change on Sunday and Sunday bupropion HCl 150 mg tablet extended release 24 hr 150 mg PO QAM losartan 50 mg tablet 25 mg PO DAILY diclofenac sodium 1 % gel 4 g topical QID Qty: 200 2RF Rx Instructions: apply to affected area as needed temazepam 15 mg Capsule 15 mg PO BEDTIME pantoprazole 40 mg tablet,delayed release (DR/EC) 40 mg PO BID Enbrel SureClick 50 mg/mL (1 mL) pen injector 50 mg SUBCUT Q7D Rx Instructions: on Sunday Discharge Orders: Discharge ED (Routine); Ordered 10/15/22 Ordered By: Reed Lincoln Referrals: Karma Cordova, SOCIAL SCIENCES DEPARTMENT CHAIR [Primary Care Provider] - Patient Instructions: Shortness of Breath (ED), Opioid Safety, Pain Management Activity Restrictions/Additional Instructions: Activity as tolerated. Drink plenty of water. Take routine medications as directed. Follow-up with primary care as needed. Return to ED for new concerns. Stand Alone Forms: Work/School Release Coding Level of Care Code ED Emergency Management Director for Chg Fwd Exam Comprehensive
--- NOTE | 2022-10-15 18:06 | ECG_ITS ---
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 Measurements Intervals [place] Rate: 85 P: 35 MI: 132 QRS: 44 QRSD: 89 T: 33 QT: 345 QTc: 411 Interpretive Statements SINUS RHYTHM MINIMAL ST DEPRESSION [0.025+ mV ST DEPRESSION] No previous ECG available for comparison Electronically Signed On 10-16-2022 22:24:02 SILO PAINTER by Karlene Riley M.D. [id number]
--- NOTE | 2022-10-15 18:11 | XRR_ITS ---
PROCEDURE INFORMATION: Exam: XR Chest Exam date and time: 10/15/2022 6:19 PM Age: 52 years old Clinical indication: Pain; Shortness of breath; Other: Back; Additional info: Chest discomfort TECHNIQUE: Imaging protocol: Radiologic exam of the chest. Views: 1 view. COMPARISON: CR XR chest 1V portable [id number] 06/23/2021 10:23 AM FINDINGS: Lungs: Unremarkable. No consolidation. Pleural spaces: Unremarkable. No pleural effusion. No pneumothorax. Heart/Mediastinum: Unremarkable. No cardiomegaly. Bones/joints: No acute findings. XR/XR chest 1V portable [id number] IMPRESSION: No acute findings.
[2022-10-15 18:21] LABS: Basophils # 0.1 10^3/uL (0.0-0.1); Basophils % 0.9 %; Eosinophils # 0.2 10^3/uL (0.0-0.8); Eosinophils % 2.5 %; Hematocrit 48.1 % (37.0-47.0); Hemoglobin 15.5 g/dL (11.5-15.3); Lymphocytes # 3.1 10^3/uL (0.8-4.8); Lymphocytes % 36.6 %; Mean Corpuscular HGB Conc 32.2 g/dL (30.0-36.0); Mean Corpuscular Hemoglobin 26.6 pg (28.0-34.0); Mean Corpuscular Volume 82.6 fl (81-99); Monocytes # 0.6 10^3/uL (0.2-0.9); Monocytes % 7.3 %; Neutrophils # 4.46 10^3/uL (1.8-7.7); Neutrophils % 52.6 %; Nucleated Red Blood Cells % 0 %; Platelet Count 299 10^3/cmm (130-400); Red Blood Count 5.82 10^6/uL (4.1-5.3); Red Cell Distribution Width 13.5 % (12.1-15.1); White Blood Count 8.5 10^3/uL (4.0-10.0)
[2022-10-15 18:36] LABS: D Dimer 0.31 ug/mIFEU (0-0.59)
[2022-10-15 18:47] VITALS: BP 183/68; PULSE 91; O2SAT 95
[2022-10-15 18:51] LABS: Troponin(5th) Baseline 6 ng/L (0-10)
[2022-10-15 19:00] VITALS: BP 183/68; PULSE 99; RESP 17; O2SAT 93
[2022-10-15 19:00] LABS: Alanine Aminotransferase 27 U/L (0-33); Alkaline Phosphatase 100 U/L (35-105); Anion Gap 13.5 (5-19); Aspartate Amino Transferase 16 U/L (0-32); Blood Urea Nitrogen 10 mg/dL (6-20); Calcium 9.2 mg/dL (8.5-10.5); Carbon Dioxide 25 mmol/L (22-29); Chloride 106 mmol/L (98-107); Glomerular Filtration Rate 75.9 mL/min (90-130); Glucose 91 mg/dL (65-115); Lipase 26 U/L (13-60); NT Pro B Type Natriuretic Pept 36 pg/mL (0-125); Osmolality Calculated 291 mOsm/kg (285-295); Potassium 3.5 mmol/L (3.5-5.1); Sodium 141 mmol/L (136-145); Total Bilirubin 0.2 mg/dL (0.15-1.2)
[2022-10-15 19:33] LABS: Add Urine Microscopic? NO; Charge for UA Resulting for Rev
[2022-10-15 19:41] LABS: Bilirubin Urine Neg (Negative); Blood Urine Neg (Negative); Glucose Urine UA Norm (Normal); Ketones Urine Negative (Negative); Leukocyte Esterase Urine Negative (Negative); Nitrate Urine Negative (Negative); Protein Urine Neg (Negative); Specific Gravity, Urine 1.005 (1.005-1.030); Urine Appearance Clear (CLEAR); Urine Color Yellow (Yellow); Urobilinogen Urine Neg (Negative); pH Urine 6 (5-7)
[2022-10-15 19:57] VITALS: BP 143/76; PULSE 98; RESP 17; O2SAT 96
== END 2022-10-15 19:57 | disposition home or self-care (01) ==
PROVIDERS: Emergency Provider Nurse Practitioner Family; PCP Nurse Practitioner
DX: R06.02 Shortness of breath (principal)
CPT/HCPCS: 71045; 80053; 81003; 83690; 83880; 84484; 85025; 85378; 93005; 99285

== ENCOUNTER 2022-12-08 07:38 | Outpatient (CLI) | payer OTHER, SELFPAY ==
--- NOTE | 2022-12-08 | XR_ITS ---
WS: [id number] XR lumbar spine 2-3V* [id number] REASON FOR EXAM: LOW BACK PAIN FINDINGS: Mild rotatory scoliosis convex left. Normal lordosis. No significant vertebral body abnormality. Moderate narrowing of the L5-S1 interspace with endplate subchondral sclerosis and small osteophytosi s. Remaining disc spaces intact and relatively well-preserved. No spondylolysis or significant spondylolisthesis. XR/XR lumbar spine 2-3V* [id number] IMPRESSION: Degenerative spondylosis as above.
--- NOTE | 2022-12-08 | XR_ITS ---
WS: [id number] XR hand LT min 3V* [id number] REASON FOR EXAM: PAIN IN LEFT HAND FINDINGS: Mild osteoarthropathy in the DIP and PIP joints of the fingers and joints of the thumb, with mild bryant nt space narrowing and subchondral sclerosis and small marginal osteophytosis. No fracture or focal bone lesion. No soft tissue abnormality. XR/XR hand LT min 3V* [id number] IMPRESSION: Mild osteoarthritis with no acute abnormality.
== END 2022-12-08 07:39 | disposition home or self-care (01) ==
LOC: RADOUTREAD 12-11 07:40
PROVIDERS: PCP Nurse Practitioner; Visit Provider Physician Assistant
DX: M47.816 Spondylosis without myelopathy or radiculopathy, lumbar region; M19.042 Primary osteoarthritis, left hand
CPT/HCPCS: 72100; 73130

== ENCOUNTER → 2022-12-18 13:59 | Outpatient (BNVA) | payer OTHER, SELFPAY | PROVIDERS: PCP Nurse Practitioner; Visit Provider Internal Medicine Rheumatology | DX: L40.50 Arthropathic psoriasis, unspecified (principal); Z79.899 Other long term (current) drug therapy; Z71.89 Other specified counseling | CPT/HCPCS: 99214 ==

== ENCOUNTER → 2022-12-27 14:56 | Outpatient (BNVA) | payer OTHER, SELFPAY | PROVIDERS: PCP Nurse Practitioner; Visit Provider Internal Medicine Cardiovascular Disease | DX: R06.02 Shortness of breath (principal); I10 Essential (primary) hypertension; R07.89 Other chest pain; R53.83 Other fatigue; L40.50 Arthropathic psoriasis, unspecified | CPT/HCPCS: 93005; 99205 ==

== ENCOUNTER 2023-01-05 12:24 | Outpatient (CLI) | payer OTHER, SELFPAY ==
--- NOTE | 2023-01-05 | ECG_ITS ---
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 Interpretive Statements NAME OF STUDY: TREADMILL STRESS TEST INDICATION: Chest Pain, PROCEDURE: At the baseline, the patient's blood pressure was with a heart rate of. The baseline electrocardiogram showed normal sinus rhythm with some nonspecific T wave changes in the anterolateral and inferior leads. The patient exercised for 6 minutes and 26 seconds on a standard Nimesh protocol. Patient attained a maximum heart rate of 152 beats per minute(89% of the maximum predicted heart rate) with a blood pressure at the peak exercise of 218/133 mm Hg. The EKG at the peak exercise revealed no significant changes. Patient did not have any chest pain or any significant cardiac arrhythmias with the exercise During the recovery phase, there were no new changes. Blood pressure at the end of the recovery phase was 139/90 mm Hg with a heart rate of 96 per minute. CONCLUSION: 1. Normal EKG response to treadmill exercise 2. No exercise-induced chest pain or cardiac arrhythmia 3. Slightly impaired exercise tolerance, attained a maximum of 10.2 METs Electronically Signed On 01-07-2023 23:08:32 CDT by Alley Camejo M.D. [id number]
[2023-01-05 12:34] VITALS: BMI 36.2
[2023-01-05 13:30] VITALS: BP 139/90; PULSE 96
== END 2023-01-05 12:25 | disposition home or self-care (01) ==
LOC: CDL 12:25
PROVIDERS: PCP Nurse Practitioner; Visit Provider Internal Medicine Cardiovascular Disease
DX: R07.9 Chest pain, unspecified (principal)
CPT/HCPCS: 93017

== ENCOUNTER 2023-01-30 20:00 | Outpatient (CLI) | payer OTHER, SELFPAY | END 2023-01-31 06:04 | disposition home or self-care (01) | LOC: SLEEP 02-06 15:39 | PROVIDERS: PCP Nurse Practitioner; Visit Provider Nurse Practitioner | DX: R53.83 Other fatigue (principal); R06.83 Snoring | CPT/HCPCS: 95810 ==

== ENCOUNTER → 2023-03-19 14:47 | Outpatient (BNVA) | payer OTHER, SELFPAY | PROVIDERS: PCP Nurse Practitioner; Visit Provider Internal Medicine Rheumatology | DX: L40.50 Arthropathic psoriasis, unspecified (principal); Z71.89 Other specified counseling; Z79.899 Other long term (current) drug therapy | CPT/HCPCS: 99214 ==

== ENCOUNTER → 2023-04-19 07:55 | Outpatient (BNVA) | payer OTHER, SELFPAY | PROVIDERS: PCP Nurse Practitioner; Visit Provider Podiatrist Foot & Ankle Surgery | DX: L60.3 Nail dystrophy (principal); L84 Corns and callosities | CPT/HCPCS: 99203 ==

== ENCOUNTER → 2023-05-08 14:43 | Outpatient (BNVA) | payer OTHER, SELFPAY | PROVIDERS: PCP Nurse Practitioner; Visit Provider Dermatology | DX: L57.0 Actinic keratosis (principal); L81.4 Other melanin hyperpigmentation; L85.8 Other specified epidermal thickening; D22.39 Melanocytic nevi of other parts of face; L40.59 Other psoriatic arthropathy; L40.0 Psoriasis vulgaris; L82.1 Other seborrheic keratosis | CPT/HCPCS: 17000; 17003; 99204 ==

== ENCOUNTER → 2023-07-02 14:39 | Outpatient (BNVA) | payer OTHER, SELFPAY | PROVIDERS: PCP Nurse Practitioner; Visit Provider Internal Medicine Rheumatology | DX: A04.8 Other specified bacterial intestinal infections (principal); L40.50 Arthropathic psoriasis, unspecified; Z79.899 Other long term (current) drug therapy; Z71.89 Other specified counseling | CPT/HCPCS: 99214 ==

== ENCOUNTER 2023-07-16 09:39 | Emergency (ER) | payer OTHER, SELFPAY ==
[2023-07-16 09:48] VITALS: BP 208/97; PULSE 83; RESP 18; TEMP 36.6; O2SAT 97; BMI 34.7
[2023-07-16 10:03] LABS: Basophils # 0.1 10^3/uL (0.0-0.1); Basophils % 1.5 %; Eosinophils # 0.1 10^3/uL (0.0-0.8); Eosinophils % 1.3 %; Hematocrit 46.6 % (36-47); Lymphocytes # 2.6 10^3/uL (0.8-4.8); Lymphocytes % 30.8 %; Mean Corpuscular HGB Conc 33.3 g/dL (30-55); Mean Corpuscular Hemoglobin 27.9 pg (27-33); Mean Corpuscular Volume 83.8 fl (85-98); Mean Platelet Volume 10.7 fL (7.4-10.4); Monocytes # 0.4 10^3/uL (0.2-0.9); Monocytes % 4.1 %; Neutrophils # 5.31 10^3/uL (1.8-7.7); Neutrophils % 62.1 %; Nucleated Red Blood Cells % 0 %; Platelet Count 290 10^3/cmm (157-399); Red Blood Count 5.56 10^6/uL (3.85-5.65); Red Cell Distribution Width 12.9 % (12.1-15.1); White Blood Count 8.55 10^3/uL (3.29-11.43)
[2023-07-16 10:28] LABS: Alanine Aminotransferase 20 U/L (0-33); Albumin Level 4.8 g/dL (3.5-5.2); Alkaline Phosphatase 99 U/L (35-105); Anion Gap 13.1 (5-19); Aspartate Amino Transferase 15 U/L (0-32); Blood Urea Nitrogen 8 mg/dL (6-20); Calcium 10.6 mg/dL (8.5-10.5); Carbon Dioxide 29 mmol/L (22-29); Chloride 104 mmol/L (98-107); Glucose 108 mg/dL (65-115); Osmolality Calculated 293 mOsm/kg (285-295); Potassium 4.1 mmol/L (3.5-5.1); Sodium 142 mmol/L (136-145); Total Bilirubin 0.3 mg/dL (0.15-1.2); Total Protein 7.8 g/dL (6.6-8.7)
--- NOTE | 2023-07-16 11:10 | CT_ITS ---
WS: [id number] CT HEAD NONCONTRAST HISTORY: headache, HTN TECHNIQUE: Contiguous axial imaging performed through the brain in 2.5 mm imaging. Bone and soft tiss ue windows. Sagittal and coronal reformats reviewed. All CT scans at [facility] use at least one of these dose optimization techniques: automated exposure control; mA and/or kV adjustment per pa tient size (includes targeted exams where dose is matched to clinical indication); or iterative recon struction. DLP: 996.88 mGy.cm COMPARISON: 07/08/2019 No acute intracranial hemorrhage, midline shift or mass effect. No atrophy or prior infarcts or herniation. Small lacunar infarct versus perivascular space on the in ferior LEFT basal ganglia similar to the prior study. Ventricles: Normal size with no hydrocephalus. Paranasal sinuses: As visualized are clear. Mastoid air cells: Well pneumatized. Calvarium and scalp: Skull is intact with no soft tissue edema or swelling. IMPRESSION: 1. No acute intracranial hemorrhage or edema. 2. Small lacunar infarct versus perivascular space in the inferior LEFT basal ganglia. No change.
[2023-07-16 11:22] LABS: Add Urine Microscopic? NO; Charge for UA Resulting for Rev
[2023-07-16] MEDS: labetalol 5 mg/mL SDV 20mL 10 MG IVP (11:28)
[2023-07-16] MEDS: carvedilol 6.25 mg Tablet PO (11:28)
[2023-07-16 11:29] LABS: Bilirubin Urine Neg (Negative); Blood Urine Neg (Negative); Glucose Urine UA Norm (Normal); Ketones Urine Negative (Negative); Leukocyte Esterase Urine Negative (Negative); Nitrate Urine Negative (Negative); Protein Urine Neg (Negative); Specific Gravity, Urine 1.005 (1.005-1.030); Urine Appearance Clear (CLEAR); Urine Color Yellow (Yellow); Urobilinogen Urine Norm (Negative); pH Urine 6 (5-7)
[2023-07-16 11:32] VITALS: BP 180/108; PULSE 69; RESP 16; O2SAT 98
[2023-07-16 11:35] VITALS: BP 161/104; PULSE 72; RESP 16; O2SAT 95
--- NOTE | 2023-07-16 12:21 | ED_ITS ---
HPI - Headache General: Chief Complaint: Headache Stated Complaint: BP, N/V, head pain Time Seen by Provider: 07/16/23 10:10 Source: patient Mode of arrival: ambulatory History of Present Illness: 53-year-old female presents emergency room complaining of a frontal headache she complains of worst the pain feels to be in the eyes bilaterally. She has a history of hypertension blood pressures been elevated. She did not take her carvedilol. She also uses clonidine as needed. She is somewhat nauseous mild photophobia. No vomiting or diarrhea. MD elicited complaint: headache Onset (ago): hour(s) Onset description: suddenly Location: retro-orbital Severity: severe Quality & Timing: throbbing and pulsatile Exacerbating factors: none Relieving factors: nothing Associated symptoms: Deny chest pain, confusion, cough, diaphoresis, eye pain, eye redness, fever(s), lightheadedness, loss of vision, malaise, nausea, neck stiffness, numbness, paresthesias, photophobia, pre-syncope, rash, seizures, short of breath, sound sensitivity, syncope, vomiting or weakness Treatments prior to arrival: none Review of Systems Const: Denies: fever(s), chills, malaise or diaphoresis Card: Denies: chest pain, lightheadedness, syncope or pre-syncope Resp: Denies: dyspnea GI: Denies: abdominal pain, nausea or vomiting : Denies: dysuria, urinary frequency or urinary urgency Musc: Denies: neck pain or back pain Skin/Breast: Denies: rash Neuro: Reports: headache(s); Denies: confusion PFSH ED PFSH: Medical History Calculus, ureter Hematuria High risk medication use Immunization counseling Inflammatory back pain Inflammatory back pain Psoriatic arthritis Retained ureteral stent Surgical History History of appendectomy History of endometrial ablation History of hysterectomy 08/23/2022 History of tubal ligation S/P ureteral stent placement Family History Other Diabetes Hyperlipidemia Hypertension Denies family history of Rheumatoid arthritis Lupus Chronic kidney disease (CKD) Lung disease Cancer Stroke Social History Smoking and tobacco/nicotine status: never used tobacco/nicotine Alcohol intake: never Substance/Drug Use: never Adopted: No Caregiver/support person: No Lives independently: No Household members: spouse Marital status: Current occupational status: employed Physical Exam Const: COMMON NORMALS: no acute distress GENERAL APPEARANCE: cooperative and comfortable ORIENTATION/CONSCIOUSNESS: Yes awake, Yes oriented to person, Yes oriented to place and Yes oriented to time HENMT: COMMON NORMALS: normocephalic, atraumatic and hearing grossly normal bilaterally HEAD & SCALP: normocephalic and atraumatic Eye: DIRECT OPHTHALMOSCOPY: No photophobia Resp: COMMON NORMALS: normal respiratory effort, No retractions, No use of accessory muscles and clear to auscultation bilaterally AUSCULTATION: clear to auscultation bilaterally Cardio: COMMON NORMALS: regular rate, regular rhythm and No murmurs present (Cardio) RATE: regular rate RHYTHM: regular rhythm GI: COMMON NORMALS: Soft to palpation and No hepatosplenomegaly present AUSCULTATION: Yes normoactive bowel sounds PALPATION: Yes Soft to palpation, No Tenderness to palpation present (GI), No Guarding due to palpation present (GI) and Yes No hepatosplenomegaly present Extremity: COMMON NORMALS: normal to inspection, capillary refill normal, no clubbing, cyanosis or edema, no calf tenderness and no pedal edema Neuro: SENSORIUM/ORIENTATION: Yes oriented to person, Yes oriented to place and Yes oriented to time Skin: COMMON NORMALS: no rashes or lesions noted GENERAL SKIN EXAM: no rash es or lesions noted Course Vital Signs: Vital signs: Vital Signs Temperature 97.9 F 07/16/23 09:48 Pulse Rate 72 07/16/23 11:35 Respiratory Rate 16 07/16/23 11:35 Blood Pressure 161/104 07/16/23 11:35 Pulse Oximetry 95 07/16/23 11:35 Oxygen Delivery Me thod Room Air 07/16/23 11:35 MDM - Headache Medical Decision Making Headache improved with treatment of blood pressure then resolved after she was given medication specific for the headache. She is feeling much better discharged home add amlodipine 5 mg daily can use Phenergan as needed for breakthrough headaches follow-up with primary care within a week to reevaluate blood pressure Medical Records I reviewed the patient's medical records. Lab Data I reviewed the patient's lab results. 07/16/23 09:58 07/16/23 09:58 Laboratory Results WBC 8.55 10^3/uL (3.29-11.43) 07/16/23 09:58 RBC 5.56 10^6/uL (3.85-5.65) 07/16/23 09:58 Hgb 15.50 g/dL (11.27-16.99) 07/16/23 09:58 Hct 46.6 % (36-47) 07/16/23 09:58 MCV 83.8 fl (85-98) L 07/16/23 09:58 MCH 27.9 pg (27-33) 07/16/23 09:58 MCHC 33.3 g/dL (30-55) 07/16/23 09:58 RDW 12.9 % (12.1-15.1) 07/16/23 09:58 Plt Count 290 10^3/cmm (157-399) 07/16/23 09:58 MPV 10.7 fL (7.4-10.4) H 07/16/23 09:58 Neut % (Auto) 62.1 % 07/16/23 09:58 Lymph % (Auto) 30.8 % 07/16/23 09:58 [place] % (Auto) 4.1 % 07/16/23 09:58 Eos % (Auto) 1.3 % 07/16/23 09:58 Baso % (Auto) 1.5 % 07/16/23 09:58 Neut # (Auto) 5.31 10^3/uL (1.8-7.7) 07/16/23 09:58 Lymph # (Auto) 2.6 10^3/uL (0.8-4.8) 07/16/23 09:58 [place] # (Auto) 0.4 10^3/uL (0.2-0.9) 07/16/23 09:58 Eos # (Auto) 0.1 10^3/uL (0.0-0.8) 07/16/23 09:58 Baso # (Auto) 0.1 10^3/uL (0.0-0.1) 07/16/23 09:58 Nucleated RBC % (auto) 0 % 07/16/23 09:58 Nucleated RBCs # 0.0 /100WBC 07/16/23 09:58 Sodium 142 mmol/L (136-145) 07/16/23 09:58 Potassium 4.1 mmol/L (3.5-5.1) 07/16/23 09:58 Chloride 104 mmol/L (98-107) 07/16/23 09:58 Carbon Dioxide 29 mmol/L (22-29) 07/16/23 09:58 Anion Gap 13.1 (5-19) 07/16/23 09:58 BUN 8 mg/dL (6-20) 07/16/23 09:58 Creatinine 0.9 mg/dL (0.5-0.9) 07/16/23 09:58 GFR Calculation 66.0 mL/min (90-130) L 07/16/23 09:58 Glucose 108 mg/dL (65-115) 07/16/23 09:58 Calculated Osmolality 293 mOsm/kg (285-295) 07/16/23 09:58 Calcium 10.6 mg/dL (8.5-10.5) H 07/16/23 09:58 Total Bilirubin 0.3 mg/dL (0.15-1.2) 07/16/23 09:58 AST 15 U/L (0-32) 07/16/23 09:58 ALT 20 U/L (0-33) 07/16/23 09:58 Alkaline Phosphatase 99 U/L (35-105) 07/16/23 09:58 Total Protein 7.8 g/dL (6.6-8.7) 07/16/23 09:58 Albumin 4.8 g/dL (3.5-5.2) 07/16/23 09:58 Globulin 3.0 g/dL (1.3-4.6) 07/16/23 09:58 Urine Color Yellow (Yellow) 07/16/23 11:05 Urine Appearance Clear (CLEAR) 07/16/23 11:05 Urine pH 6 (5-7) 07/16/23 11:05 Ur Specific [place] 1.005 (1.005-1.030) 07/16/23 11:05 Urine Protein Neg (Negative) 07/16/23 11:05 Urine Glucose (UA) Norm (Normal) 07/16/23 11:05 Urine Ketones Negative (Negative) 07/16/23 11:05 Urine Blood Neg (Negative) 07/16/23 11:05 Urine Nitrate Negative (Negative) 07/16/23 11:05 Urine Bilirubin Neg (Negative) 07/16/23 11:05 Urine Urobilinogen Norm mg/dL (Negative) 07/16/23 11:05 Ur Leukocyte Esterase Negative (Negative) 07/16/23 11:05 All radiology interpretation(s) finalized by discharge Discharge Plan Discharge Patient Disposition: Home Clinical Impression: Migraine, Benign essential HTN Condition: Stable Prescriptions: New amlodipine 5 mg tablet 5 mg PO DAILY Qty: 30 0RF promethazine 25 mg tablet 25 mg PO Q6H PRN (Reason: nausea and vomiting/headache) Qty: 20 0RF No Action oxybutynin chloride 15 mg tablet extended release 24 hr 15 mg PO DAILY levothyroxine [Synthroid] 50 mcg tablet 50 mcg PO DAILY lactic acid-urea 10-40 % gel 1 ea topical DAILY Qty: 120 2RF estradiol 0.05 mg/24 hr patch semiweekly See Rx Instructions .ROUTE .COMPLEX Rx Instructions: 0.05 mg transdermally - change on Sunday and Sunday bupropion HCl 150 mg tablet extended release 24 hr 150 mg PO QAM losartan 50 mg tablet 75 mg PO DAILY cholecalciferol (vitamin D3) 25 mcg (1,000 unit) capsule 25 mcg PO DAILY carvedilol 6.25 mg tablet 6.25 mg PO BID 30 Days Qty: 60 5RF Rx Instructions: must administer with a meal/food clonidine HCl 0.1 mg tablet 0.1 mg PO BID PRN (Reason: hypertensive emergency) celecoxib [Celebrex] 200 mg capsule 200 mg PO BID PRN (Reason: pain, moderate to severe) Qty: 60 1RF Xeljanz 5 mg tablet 5 mg PO BID Qty: 60 3RF leflunomide 20 mg tablet 20 mg PO DAILY Qty: 90 0RF pantoprazole 40 mg tablet,delayed release (DR/EC) 40 mg PO BID Qty: 60 3RF diclofenac sodium 1 % gel 4 g topical QID Qty: 200 2RF Rx Instructions: apply to affected area as needed temazepam 15 mg Capsule 15 mg PO BEDTIME Discharge Orders: Discharge ED (Routine); Ordered 07/16/23 Ordered By: Manuel Yuan Referrals: Karma Cordova, CERTIFIED REGISTERED NURSE PRACTITIONER [Primary Care Provider] - Discharge Diet: Usual diet Discharge Activity: Increase activity as tolerated Patient Instructions: Opioid Safety, Pain Management Activity Restrictions/Additional Instructions: Thank you for choosing [facility] for your healthcare needs today. Please realize this is an emergency room and that we are providing you with a medical screening exam and this may not be complete and all inclusive of all the testing and or work up that you may need to determine your ailment or severity of your illness. It is very important that you follow up as instructed or that you return to the Emergency Department should you have concerns or if your condition changes or worsens in any way. You were seen today for elevated blood pressure and headache. Recommend you add the amlodipine 5 mg daily to your blood pressure regimen. Follow-up with your doctor within the next week to reevaluate blood pressure control. You can use Phenergan as needed for migraine. Coding Level of Care Code ED Preventive Maintenance Coordinator for Stepan Ervin
[2023-07-16] MEDS: diphenhydrAMINE 50 mg/mL SDV 1mL IVP (12:33)
[2023-07-16] MEDS: ketorolac 30 mg/mL INJ IVP (12:33)
[2023-07-16] MEDS: promethazine 25 mg/mL SDV 1 mL IM (12:37)
[2023-07-16 15:28] VITALS: BP 149/91; PULSE 68; RESP 14; O2SAT 96
== END 2023-07-16 15:32 | disposition home or self-care (01) ==
PROVIDERS: Physician Assistant; Emergency Provider Family Medicine; PCP Nurse Practitioner
DX: G43.909 Migraine, unspecified, not intractable, without status migrainosus (principal); I10 Essential (primary) hypertension
CPT/HCPCS: 36415; 70450; 80053; 81003; 85025; 96372; 96374; 96375; 99285; J1200; J1885; J2550; J3490

== ENCOUNTER → 2023-07-23 08:04 | Outpatient (BNVA) | payer OTHER, SELFPAY | PROVIDERS: PCP Nurse Practitioner; Visit Provider Podiatrist Foot & Ankle Surgery | DX: L60.3 Nail dystrophy (principal); L84 Corns and callosities; L40.50 Arthropathic psoriasis, unspecified; M21.41 Flat foot [pes planus] (acquired), right foot; M21.42 Flat foot [pes planus] (acquired), left foot; M77.41 Metatarsalgia, right foot; M77.42 Metatarsalgia, left foot | CPT/HCPCS: 99214 ==

== ENCOUNTER → 2023-10-09 13:45 | Outpatient (BNVA) | payer OTHER, SELFPAY | PROVIDERS: Visit Provider Internal Medicine Rheumatology | DX: L40.50 Arthropathic psoriasis, unspecified (principal); Z79.899 Other long term (current) drug therapy; Z71.89 Other specified counseling | CPT/HCPCS: 99214 ==

== ENCOUNTER 2023-10-22 12:17 | Outpatient (RCR) | payer OTHER, SELFPAY | END 2023-11-08 23:59 | disposition home or self-care (01) | LOC: SPT 12:17 | PROVIDERS: PCP Nurse Practitioner; Visit Provider Nurse Practitioner | DX: R32 Unspecified urinary incontinence (principal); N39.46 Mixed incontinence | CPT/HCPCS: 97110; 97161 ==

== ENCOUNTER 2023-11-09 15:39 | Outpatient (CLI) | payer OTHER, SELFPAY ==
--- NOTE | 2023-11-09 15:42 | MR_ITS ---
WS: [id number] MRI HEAD WITH CONTRAST TECHNIQUE: Sagittal T1, T2 axial, T2 axial FLAIR, axial susceptibility weighted imaging, axial diffus ion weighted images, and coronal T2 images were obtained. Pre and post-T1 axial and post T1 coronal i mages. ADC and FSPGR images. CLINICAL INFORMATION: MEMORY LOSS COMPARISON: CT 07/16/23 FINDINGS: No evidence of restricted diffusion to suggest acute ischemia. Ventricular system and basal cisterns are patent. Mild supratentorial white matter changes can be seen with hypertension, diabetes, and florencia porfirio headaches. No significant parenchymal volume loss. Normal posterior fossa. Normal vascular flow voids at the skull base. No extra-axial fluid collections. No evidence of mass or mass effect. Paran sam sinuses and mastoid air cells are well aerated. Small retention cyst LEFT maxillary sinus. No hemosiderin on the susceptibly weighted images. Normal posterior nasopharynx. Mastoid air cells ar e well aerated. No abnormal intracranial enhancement. Normal optic chiasm and pituitary infundibulum. 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 This is likely incidental. Recommend correlation with pituitary function studies. Th is can be followed up with MRI of the pituitary without and with gadolinium enhancement. This is best seen on the sagittal MPR post gadolinium imaging IMPRESSION: 1. No evidence of restricted diffusion to suggest acute ischemia. 2. Mild supratentorial white matter changes nonspecific in a patient this age but can be seen with h ypertension, diabetes, and migraine headaches. 3. No hemosiderin on susceptibly weighted images. 4. No abnormal gadolinium enhancement. 5. 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 This is likely incidental. Recommend follow-up in 6 months with MRI of the p ituitary without and with gadolinium enhancement. Recommend correlation with pituitary function studi es.
[2023-11-09] MEDS: gadobenate dimeglumine 20 mL vial IV (16:22)
== END 2023-11-09 15:40 | disposition home or self-care (01) ==
LOC: RAD 15:40
PROVIDERS: PCP Nurse Practitioner; Visit Provider Nurse Practitioner
DX: R25.1 Tremor, unspecified (principal); R41.3 Other amnesia
CPT/HCPCS: 70553; A9577

== ENCOUNTER → 2023-12-06 14:02 | Outpatient (BNVA) | payer OTHER, SELFPAY | PROVIDERS: PCP Nurse Practitioner; Visit Provider Internal Medicine Cardiovascular Disease | DX: I10 Essential (primary) hypertension (principal); L40.50 Arthropathic psoriasis, unspecified; R07.9 Chest pain, unspecified | CPT/HCPCS: 82533; 83003; 83835; 84550; 99214 ==